=== PATIENT | male | born 1930 | race Caucasian/White ===

== ENCOUNTER 2016-10-22 11:18 | Emergency (ER) | payer MEDICARE, BC ==
[2016-10-22 12:07] VITALS: BP 140/65
--- NOTE | 2016-10-22 12:42 | UC ---
Complaint Male HPI - HPI Summary HPI Summary: Patient woke up in the morning with severe flank pain, has Hx of BPH and has difficulty urinating. denies any pain at this moment, states he feels fine, but has had kidney stones in the past. - History of Current Complaint Chief Complaint: UCGeneralIllness Stated Complaint: LOW BACK PAIN/VOMITING Time Seen by Provider: 10/22/16 12:26 Hx Obtained From: Patient Onset/Duration: Sudden Onset, Lasting Hours Timing: Intermittent Severity Initially: Severe Severity Currently: None Location: Flank Character: Burning Aggravating Factor(s): Voiding Associated Signs And Symptoms: Positive: Back Pain - Allergies/Home Medications Allergies/Adverse Reactions: Allergies Allergy/AdvReac Type Severity Reaction Status Date / Time Atorvastatin [From Lipitor] AdvReac Intermediate See Comment Verified 10/22/16 11:57 Home Medications: Home Medications Gary [place] 10/22/16 [History] PMH/Surg Hx/FS Hx/Imm Hx Previously Healthy: Yes - Surgical History Surgical History: Yes Surgery Procedure, Year, and Place: CARDIAC STENTS,ANKLE SURGERY, ORTHOSCOPY KNEES. PYLONIDAL CYST,APPENCECTOMY, left hand surgery - Family History Known Family History: Positive: Hypertension Family History: unsure of family history - Social History Alcohol Use: Occasionally Substance Use Type: None Smoking Status (MU): Former Smoker When Did the Patient Quit Smoking/Using Tobacco: 50 YRS Review of Systems Constitutional: Negative Skin: Negative Eyes: Negative ENT: Negative Respiratory: Negative Cardiovascular: Negative Gastrointestinal: Negative Genitourinary: Dysuria Motor: Negative Neurovascular: Negative Musculoskeletal: Myalgia Neurological: Negative Psychological: Negative All Other Systems Reviewed And Are Negative: Yes Physical Exam Triage Information Reviewed: Yes Appearance: Well-Appearing, Well-Nourished, Pain Distress Vital Signs: Initial Vital Signs Temp 97.9 F 10/22/16 12:01 Pulse 60 10/22/16 12:01 Resp 20 10/22/16 12:01 BP 140/65 10/22/16 12:01 Pulse Ox 96 10/22/16 12:01 Vital Signs Reviewed: Yes Eye Exam: Normal ENT Exam: Normal Dental Exam: Normal Neck exam: Normal Respiratory Exam: Normal Respiratory: Positive: Chest non-tender, Lungs clear, Normal breath sounds Cardiovascular Exam: Normal Cardiovascular: Positive: RRR, No Murmur, Pulses Normal Abdomen Description: Positive: Nontender, No Organomegaly, Soft, CVA Tenderness (R) - neg, CVA Tenderness (L) - neg Bowel Sounds: Positive: Present Musculoskeletal Exam: Normal Musculoskeletal: Positive: Strength Intact, ROM Intact, No Edema Neurological Exam: Normal Neurological: Positive: Alert, Muscle Tone Normal Psychological Exam: Normal Skin Exam: Normal Complaint Male Course/Dx - Course Course Of Treatment: hx obtained, exam performed ,meds reviewed, ct obtained and renal stones visible, UA attempted but patient not able to give a sample at this time, patient will follow up with his urologist on Monday, advised a trip to ER if pain becomes worse or he cannot urinate - Differential Dx/Diagnosis Differential Diagnosis/HQI/PQRI: Prostatitis, Ureteral Calculi, Urinary Tract Infection Provider Diagnoses: renal calculi. flank pain. BPH Discharge - Discharge Plan Condition: Stable Disposition: HOME Patient Education Materials: Kidney Stones (ED) Additional Instructions: 1. follow up with you urologist on monday morning 2. Increase fluid intake and use the pain medication as needed. 3. If pain becomes sever, please report to ER for further evaluation
--- NOTE | 2016-10-22 13:08 | RAD ---
CLINICAL HISTORY: Right flank pain with vomiting COMPARISON: December 19, 2009 TECHNIQUE: Multiple contiguous axial CT scans were obtained of the abdomen and pelvis, without intravenous contrast enhancement. Coronal and sagittal multiplanar reformations are submitted for review. Oral contrast was not administered. FINDINGS: The study is limited by the lack of intravenous contrast. This limits evaluation of the solid organs and vasculature. LUNG BASES: The lung bases are clear. LIVER: The liver is normal in shape, size, contour, and attenuation. BILE DUCTS: There is no intrahepatic or extrahepatic biliary dilatation. GALLBLADDER: Multiple gallstones are noted. There is no pericholecystic inflammatory change. PANCREAS: The pancreas is normal, without mass or ductal dilatation. SPLEEN: Normal in size and appearance. UPPER GI TRACT: Evaluation of the gastrointestinal tract is limited by incomplete gastric distention. The upper GI tract is unremarkable. SMALL BOWEL AND MESENTERY: The small bowel is normal in contour, course, and caliber. There is no obstruction or dilatation. COLON: The colon is normal in contour, course, caliber. There is no pericolonic inflammatory change. There is a tubular, vermiform, hollow viscus that is blind ending, and originates from the cecum, consistent with a normal appendix. There is no periappendiceal inflammatory change. This is best seen on axial image 117 ADRENALS: Normal bilaterally. KIDNEYS: There is a 0.3 cm calculus of the right UVJ with mild hydroureter. There are punctate nonobstructing calyceal stones bilaterally. BLADDER: As noted above, there is a 0.3 cm right UVJ stone PELVIC ORGANS: The prostate is diffusely enlarged. The seminal vesicles are symmetric. AORTA: There is calcific atherosclerotic disease of the abdominal aorta and its branches, without aneurysmal dilatation IVC: Unremarkable LYMPH NODES: There is no lymphadenopathy by size criteria. ABDOMINAL WALL: There is a small fat-containing ventral hernia just superior to the umbilicus. BONES AND SOFT TISSUES: Degenerative changes are noted of the spine OTHER: None IMPRESSION: 1. BILATERAL NEPHROLITHIASIS INCLUDING A 0.3 CM CALCULUS OF THE RIGHT UVJ. THERE IS MILD RIGHT HYDROURETER. 2. CHOLELITHIASIS. 3. FAT-CONTAINING VENTRAL HERNIA. 4. ENLARGED PROSTATE
[2016-10-22] MEDS ORDERED: Ketorolac INJ* 30 MG/ML 1 ML VIAL IM ONE (13:25)
== END 2016-10-22 14:09 | disposition home or self-care (01) ==
LOC: UCCORT 11:18
DX: N20.0 Calculus of kidney (principal); N20.1 Calculus of ureter; K80.20 Calculus of gallbladder without cholecystitis without obstruction; K43.9 Ventral hernia without obstruction or gangrene; N40.0 Benign prostatic hyperplasia without lower urinary tract symptoms; Z95.5 Presence of coronary angioplasty implant and graft; Z87.891 Personal history of nicotine dependence
CPT/HCPCS: 74176; 96372; 99212; G0463; J1885

== ENCOUNTER 2017-07-20 07:32 | Emergency (ER) | payer MEDICARE, BC ==
[2017-07-20 08:10] VITALS: BP 143/82
[2017-07-20] MEDS ORDERED: Ipratropium 0.5MG/2.5ML NEB* 0.5 MG/2.5 ML NEB.SOLN INH ONE (09:11)
[2017-07-20] MEDS ORDERED: Albuterol 2.5 MG/3 ML NEB.SOL* (0.083%) INH ONE (09:11)
--- NOTE | 2017-07-20 09:16 | RAD ---
HISTORY: Cough, productive COMPARISONS: December 17, 2013 VIEWS: 4: Frontal dual-energy and lateral views of the chest. FINDINGS: CARDIOMEDIASTINAL SILHOUETTE: The cardiomediastinal silhouette is normal. GRACE: The grace are normal. PLEURA: The costophrenic angles are sharp. No pleural abnormalities are noted. LUNG PARENCHYMA: There is hyperinflation with flattening of the diaphragm and expansion of the AP diameter of the chest. ABDOMEN: The upper abdomen is clear. There is no subphrenic gas. BONES AND SOFT TISSUES: Degenerative changes are noted along the spine. OTHER: None. IMPRESSION: HYPERINFLATION, CONSISTENT WITH COPD. NO ACTIVE CARDIOPULMONARY DISEASE.
--- NOTE | 2017-07-20 09:23 | UC ---
Respiratory Complaint HPI - HPI Summary HPI Summary: 86 yo male with productive cough and mild dyspnea x 3-4 days no CP no f/c no n/v/d - History of Current Complaint Chief Complaint: UCRespiratory Stated Complaint: COUGH Time Seen by Provider: 07/20/17 08:38 Hx Obtained From: Patient Onset/Duration: Gradual Onset, Lasting Days Timing: Constant Severity Initially: Mild Severity Currently: Moderate Pain Intensity: 0 Pain Scale Used: 0-10 Numeric Character: Cough: Productive Aggravating Factors: Exertion, Recumbent Position Alleviating Factors: Nothing Associated Signs And Symptoms: Positive: Wheezing Related History: Similar Episode/Dx as: - bronchitis - Allergies/Home Medications Allergies/Adverse Reactions: Allergies Allergy/AdvReac Type Severity Reaction Status Date / Time lipitor Allergy See Comment Uncoded 07/20/17 08:12 Home Medications: Home Medications Jade & Celery Seed 1 tab PO DAILY 07/20/17 [History Confirmed 07/20/17] Cyanocobalamin TAB* [Vitamin B12 TAB*] 1,000 mcg PO DAILY 07/20/17 [History Confirmed 07/20/17] Gluc Gonsales/Chondro Gonsales A/Vit C/Mn [Glucosamine Chondroitin] 1 tab PO DAILY 07/20/17 [History Confirmed 07/20/17] dilTIAZem HCl [Cardizem 120 MG TAB] 1 tab PO BID 07/20/17 [History Confirmed ] PMH/Surg Hx/FS Hx/Imm Hx Previously Healthy: Yes Cardiovascular History: Cardiac Disease, Hypertension Respiratory History: Bronchitis - Surgical History Surgical History: Yes Surgery Procedure, Year, and Place: CARDIAC STENTS,ANKLE SURGERY, ORTHOSCOPY KNEES. PYLONIDAL CYST,APPENCECTOMY, left hand surgery - Family History Known Family History: Positive: Hypertension Family History: unsure of family history - Social History Alcohol Use: Occasionally Substance Use Type: None Smoking Status (MU): Former Smoker When Did the Patient Quit Smoking/Using Tobacco: 50- 60 YRS Review of Systems Constitutional: Negative Skin: Negative Eyes: Negative ENT: Negative Respiratory: Cough Cardiovascular: Negative Gastrointestinal: Negative Genitourinary: Negative Motor: Negative Neurovascular: Negative Musculoskeletal: Negative Neurological: Negative Psychological: Negative Is Patient Immunocompromised?: No All Other Systems Reviewed And Are Negative: Yes Physical Exam Triage Information Reviewed: Yes Appearance: Well-Appearing, No Pain Distress, Well-Nourished Vital Signs: Initial Vital Signs Temp 98.5 F 07/20/17 08:03 Pulse 71 07/20/17 08:03 Resp 22 07/20/17 08:03 BP 143/82 07/20/17 08:03 Pulse Ox 96 07/20/17 08:03 Vital Signs Reviewed: Yes Eyes: Positive: Conjunctiva Clear ENT: Positive: Hearing grossly normal, Uvula midline. Negative: Nasal congestion, Nasal drainage, Trismus, Muffled voice, Hoarse voice Neck: Positive: Supple, Nontender, No Lymphadenopathy Respiratory: Positive: No respiratory distress, No accessory muscle use, Wheezing Cardiovascular: Positive: RRR, No Murmur Musculoskeletal: Positive: ROM Intact, No Edema Neurological: Positive: Alert Psychological Exam: Normal UC Diagnostic Evaluation - Laboratory O2 Sat by Pulse Oximetry: 96 - normal;/not hypoxic - Radiology Xray Interpretation: No Acute Changes - stigmata of COPD Radiology Interpretation Completed By: Radiologist Re-Evaluation - Re-Evaluation First Eval Re-Evaluation Time: 09:49 Change: Improved - lungs clear Respiratory Course/Dx - Differential Dx/Diagnosis Provider Diagnoses: acute bronchitis with bronchospasm Discharge - Sign-Out/Discharge Documenting (check all that apply): Discharge/Admit/Transfer - Discharge Plan Condition: Stable Disposition: HOME Prescriptions: Amoxicillin PO (*) [Amoxicillin 875 MG (*)] 875 mg PO BID #14 tab predniSONE [Deltasone] 20 mg PO DAILY #5 tab Patient Education Materials: How to Use a Metered-Dose Inhaler (ED), Acute Bronchitis (ED) Referrals: Jarrod Bernard MD [Primary Care Provider] - 4 Days Additional Instructions: recheck for new or worsening symptoms use inhaler as directed
[2017-07-20] MEDS ORDERED: Albuterol HFA INHALER* 8 gm MDI INH ONE (09:50)
== END 2017-07-20 10:08 | disposition home or self-care (01) ==
LOC: UCCORT 07:32
DX: J20.9 Acute bronchitis, unspecified (principal); I10 Essential (primary) hypertension; Z79.899 Other long term (current) drug therapy; Z87.891 Personal history of nicotine dependence; Z88.8 Allergy status to other drugs, medicaments and biological substances
CPT/HCPCS: 71046; 99213; A9270-GY; G0463

== ENCOUNTER 2018-11-17 11:20 | Inpatient (IN) | payer MEDICARE, BC ==
--- NOTE | 2018-11-17 11:33 | ED ---
HPI Chest Pain - HPI Summary HPI Summary: 87 year old M presenting to [facility] complains of intermittent episodes of mild chest pain rated 5/10 in severity, described as pressure and tight, lasting 4-5 minutes each episode, with associated bilateral hand numbness, shortness of breath, and dizziness since 1 week ago while patient is not doing anything. Patient states that he has been having 2-3 episodes each day for the last week. Patient states that this morning, his chest pain became more frequent and persistent. Patient denies nausea and vomiting. Patient states he has never had these symptoms before. Symptoms aggravated by nothing. Symptoms alleviated by nothing. Patient states he has cardiac stents. Patient states he has hx hypertension and hypercholesterolemia. Patient states he has no hx MS or diabetes. Patient states he saw his primary care provider 2 weeks ago for hypertension, was placed on lisinopril, after which he developed hypotension so he stopped taking it. Patient states he had a LEOLA done yesterday by Dr. Rosas, which revealed a "valve issue." - History of Current Complaint Hx Obtained From: Patient Onset/Duration: Started Weeks Ago - 1, Still Present Timing: Intermittent, Lasting Minutes - 4-5 Current Severity: Mild Pain Intensity: 5 Pain Scale Used: 0-10 Numeric Character: Pressure/Squeezing, Tightness Aggravating Factor(s): Nothing Alleviating Factor(s): Nothing Associated Signs and Symptoms: Positive: Negative - nausea, vomiting, Other: - bilateral hand numbness, shortness of breath, and dizziness - Allergy/Home Medications Allergies/Adverse Reactions: Allergies Allergy/AdvReac Type Severity Reaction Status Date / Time lipitor AdvReac Unknown See Comment Uncoded 11/17/18 11:30 PMH/Surg Hx/FS Hx/Imm Hx Endocrine/Hematology History: Denies: Hx Diabetes Cardiovascular History: Reports: Hx Angina, Hx Hypercholesterolemia, Hx Hypertension Denies: Hx Myocardial Infarction Respiratory History: Denies: Hx Asthma, Hx Chronic Obstructive Pulmonary Disease (COPD) History: Denies: Hx Chronic Renal Failure Sensory History: Reports: Hx Contacts or Glasses Denies: Hx Hearing Aid Opthamlomology History: Reports: Hx Contacts or Glasses - Surgical History Surgery Procedure, Year, and Place: CARDIAC STENTS,ANKLE SURGERY, ORTHOSCOPY KNEES. PYLONIDAL CYST,APPENCECTOMY, left hand surgery - Family History Known Family History: Positive: Hypertension - Social History Alcohol Use: Occasionally Alcohol Amount: once per week Hx Substance Use: No Substance Use Type: Reports: None Hx Tobacco Use: Yes Smoking Status (MU): Former Smoker Review of Systems Positive: Chest Pain Positive: Shortness Of Breath Negative: Vomiting, Nausea Neurological: Other - Dizziness Positive: Numbness - bilateral hands All Other Systems Reviewed And Are Negative: Yes Physical Exam - Summary Physical Exam Summary: VITAL SIGNS: Reviewed. GENERAL: Patient is a well-developed and nourished MALE who is lying comfortable in the stretcher. Patient is not in any acute respiratory distress. HEAD AND FACE: No signs of trauma. No ecchymosis, hematomas or skull depressions. No sinus tenderness. EYES: PERRLA, EOMI x 2, No injected conjunctiva, no nystagmus. EARS: Hearing grossly intact. Ear canals and tympanic membranes are within normal limits. MOUTH: Oropharynx within normal limits. NECK: Supple, trachea is midline, no adenopathy, no JVD, no carotid bruit, no c- spine tenderness, neck with full ROM. CHEST: Symmetric, no tenderness at palpation. LUNGS: Clear to auscultation bilaterally. No wheezing or crackles. CVS: Regular rate and rhythm, S1 and S2 present, no murmurs or gallops appreciated. ABDOMEN: Soft, non-tender. No signs of distention. No rebound, no guarding, and no masses palpated. Bowel sounds are normal. EXTREMITIES: FROM in all major joints, no edema, no cyanosis or clubbing. NEURO: Alert and oriented x 3. No acute neurological deficits. Speech is normal and follows commands. SKIN: Dry and warm. Triage Information Reviewed: Yes Vital Signs Reviewed: Yes Diagnostics - Laboratory Result Diagrams: 11/17/18 11:42 11/17/18 11:42 Lab Statement: Any lab studies that have been ordered have been reviewed, and results considered in the medical decision making process. - Radiology Chest x-ray Radiology Interpretation Completed By: Radiologist Summary of Radiographic Findings: 1. NO DEFINITE ACUTE CARDIAC PULMONARY PROCESS BY RADIOGRAPH. 2. SUBSEGMENTAL ATELECTASIS AT THE LEFT COSTOPHRENIC ANGLE IS LIKELY. ED physician has reviewed this report. - EKG 1124 Cardiac Rate: NL - 64 BPM EKG Rhythm: Sinus Rhythm EKG Comparison: No Significant Change - 11/16/18 Summary of EKG Findings: Sinus rhythm at [address] elevation. Q wave in 3 and aVF. This EKG is similar to 11/16/18 Re-Evaluation - Re-Evaluation First Eval Re-Evaluation Time: 12:19 Change: Unchanged Comment: aware of troponin 0.32 Chest Pain Course/Dx - Course Assessment/Plan: Blood work without any significant abnormality except for an INR of 1.13, glucose of 130, troponin of 0.32. EKG shows a normal sinus rhythm without any ST elevations. Patient has a Q waves in leads 3 and aVF. Chest x- ray impression: No definite acute cardiopulmonary process. Subsegmental atelectasis at the left costophrenic angle is likely. Since the patient has a significant elevation of troponin, the patient is started on aspirin, Lopressor , and nitroglycerin. Since the patient takes Viagra, he was given heparin. I discussed my physical exam and findings with who accepted the patient for admission. Patient is hemodynamically stable. - Diagnoses Provider Diagnoses: NSTEMI (non-ST elevated myocardial infarction) - Provider Notifications Discussed Care Of Patient With: Kathleen Morin Time Discussed With Above Provider: 12:35 Instructed by Provider To: Other - Dr. Morin, hospitalist, agrees to admit patient. Discharge ED - Sign-Out/Discharge Documenting (check all that apply): Patient Departure - Admit to hospitalist Patient Received Moderate/Deep Sedation with Procedure: No - Discharge Plan Condition: Stable Disposition: ADMITTED TO [facility] - Billing Disposition and Condition Condition: STABLE Disposition: Admitted to [facility] - Attestation Statements Document Initiated by Stephaniee: Yes Documenting Scribe: Ludmila Nash Provider For Whom Julius is Documenting (Include Credential): Jarrod Cruz MD Scribe Attestation: I, Ludmila Nash, scribed for Jarrod Cruz MD on 11/17/18 at 1842. Scribe Documentation Reviewed: Yes Provider Attestation: The documentation as recorded by the Ludmila gray accurately reflects the service I personally performed and the decisions made by me, Jarrod Cruz MD Status of Scribe Document: Viewed
--- OUTSIDE RECORDS SUMMARY | 2018-11-17 11:34 | XMS REPORT | Continuity of Care Document ---
:1930 External Reference #:[id number] Author Name Aniyah Miranda N.P. (transmitted by agent of provider Isis Marcano) Address [facility] 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 Onset: 02/09/2011 Essential hypertension Bharath Rosas M.D. Onset: 10/27/2015 Difficulty breathing Bharath Rosas M.D. Onset: 10/29/2013 Obesity Bharath Rosas M.D. Onset: 09/17/2012 Aortic valve disorder Bharath Rosas M.D. Onset: 09/17/2012 Benign localized hyperplasia of prostate Jarrod Bernard M.D. Onset: 2011 Pure hypercholesterolemia Jarrod Bernard M.D. Onset: 10/12/2011 Benign essential hypertension Jarrod Bernard M.D. Onset: 10/12/2011 Social History Type Date Description Comments Sex Unknown Tobacco Use Start: Unknown End: Former Cigarette Smoker 2 for 20 years Unknown Packs Daily Tobacco Use Start: Unknown End: current.occasional.[occas Unknown ional] Smokeless Tobacco current.occasional.[occas ional] ETOH Use Rarely consumes alcohol Tobacco Use Start: Unknown End: Patient is a former Quit 1960s Unknown smoker Recreational Drug Use Denies Drug Use Smoking Status Reviewed: 11/12/18 Patient is a former Quit 1960s smoker Exercise Type/Frequency Does not exercise currently Allergies, Adverse Reactions, Alerts Active Allergies Reaction Severity Comments Date Lipitor insomnia on 20 mg qd, okay on 10 mg 09/06/2002 Medications Active Medications SIG Qnty Indications Ordering Provider Date Xopenex HFA inhale 2 puffs 15units J20.9 Jarrod Bernard, 11/13/2017 45mcg/Act four times a day M.DCarlos Aerosol as needed Cardizem CD take 1 tab in 90caps Bharath Olguin 12/12/2013 120mg Caps the morning Pedro Rosas ER 24HR Inspra 1 tabs by mouth 180tabs Aniyah CardCarlos Miranda, 10/29/2013 25mg Tablets bid N.P. Zocor 1/2 by mouth at 45tabs Bharath Olguin 12/18/2009 10mg Tablets bedtime Pedro Rosas Indomethacin 1 three times a 20caps Jarrod Bernard, 07/02/2008 25mg day as needed M.DCarlos Capsules gout Aspirin 1 PO qd Bharath Rosas, 11/20/2007 81mg Tablets Proscar One qd 30units Bharath Olguin 08/08/2002 5mg Pedro Rosas Glucosamine 1 Tab qd 30units Bharath Olguin 08/08/2002 Chondroitin Pedro Rosas PT Unsure Dose Nitrostat one sl q5min up 25tabs Bharath Carlos 0.3mg Tablets to 3 doses as Pedro Rosas Sub needed replace every 12 months History Medications Lisinopril 1 by mouth 30tabs I10 Bharath Olguin 10/23/2018 - 2.5mg every other day Pedro Rosas 11/11/2018 Tablets Medications Administered in Office Medication SIG Qnty Indications Ordering Provider Date Inj, Regadenoson, 0.1 MG Neil Brewer, DO FAC 12/22/2016 Injection Technetium TC 99M Neil Brewer, DO FAC 12/22/2016 Tetrofosmin, Per Unit Dose Up To 40 Millicuries Injection Technetium TC 99M KAYDEN Salas 12/22/2016 Tetrofosmin, Per Unit Dose Up To 40 Millicuries Injection Immunizations CPT Code Status Date Vaccine Reaction Lot # [id number] Given 12/13/2017 Fluzone High Dose Pt.tolerated well. [id number] 28818 Given 12/27/2016 Influenza Virus Vaccine, Quadrivalent, Split, Preservative Free 87381 Given 12/23/2015 Tdap - Tetanus/Diptheria/Acellular Pertussis Q2038 Given 12/18/2014 Fluzone Vaccine 22324 Given 12/17/2013 Flu Vaccine Split Virus [id number] Preservative Free For Indiv 3Yr Older Q2035 Given 12/17/2012 Afluria Vaccine 38190 Given 12/07/2009 Influenza Virus 3Yrs & Over [id number] 46548 Given 11/20/2007 Influenza Virus 3Yrs & Over 46057 Given 11/20/2007 Influenza Virus 3Yrs & Over 54829 Given 12/19/2006 Influenza Virus 3Yrs & Over 57982 Given 12/19/2006 Influenza Virus 3Yrs & Over 65841 Given 11/13/2006 Tdap - Tetanus/Diptheria/Acellular Pertussis 34953 Given 11/13/2006 Tdap - [id number] Tetanus/Diptheria/Acellular Pertussis 55437 Given 12/24/1997 Pneumovax (History By Patient) Vital Signs Date Vital Result Comment 11/12/2018 3:52pm Height 69.5 inches 5'9.50" Weight 217.25 lb Heart Rate 72 /min BP Systolic Sitting 152 mmHg LA< reg BP Diastolic Sitting 82 mmHg LA< reg BMI (Body Mass Index) 31.6 kg/m2 Ejection Fraction 60%-65% 10/11/18 echo 10/23/2018 10:28am Height 69.5 inches 5'9.50" Weight 230.12 lb with shoes Heart Rate 60 /min BP Systolic Sitting 156 mmHg ule reg cuff BP Diastolic Sitting 80 mmHg ule reg cuff O2 % BldC Oximetry 93 % BMI (Body Mass Index) 33.5 kg/m2 Ejection Fraction 60-65% 10/11/18 Echo Results Test Date Facility Test Result H/L Range Note Lipid Panel - 10/04/2018 [facility] Creatine 72 U/L Normal 10- [address] Kinase(CK) [place] [address] [phone] Comp Metabolic 10/04/2018 [facility] Sodium 140 mmol/L Normal 135-145 Panel [address] [place] [address] [phone] Potassium 4.6 mmol/L Normal 3.5-5.0 Chloride 106 mmol/L Normal 101-111 Co2 Carbon Dioxide 27 mmol/L Normal 22-32 Anion Gap 7 mmol/L Normal 2-11 Glucose 107 mg/dL High 70-100 Blood Urea Nitrogen 25 mg/dL High 6-24 Creatinine 1.03 mg/dL Normal 0.67-1.17 BUN/Creatinine Ratio 24.3 High 8-20 Calcium 8.9 mg/dL Normal 8.6-10.3 Total Protein 6.4 g/dL Normal 6.4-8.9 Albumin 4.2 g/dL Normal 3.2-5.2 Globulin 2.2 g/dL Normal 2-4 Albumin/Globulin Ratio 1.9 Normal 1-3 Total Bilirubin 0.80 mg/dL Normal 0.2-1.0 Alkaline Phosphatase 81 U/L Normal 34-104 Alt 27 U/L Normal 7-52 Ast 21 U/L Normal 13-39 Egfr Non- 68.6 >60 Egfr 83.0 >60 1 Lipid Profile 10/04/2018 [facility] Triglycerides 95 mg/dL 2 (Trig/Chol/HDL) [address] [place] [address] [phone] Cholesterol 145 mg/dL 3 HDL Cholesterol 46.3 mg/dL 4 LDL Cholesterol 80 mg/dL 5 1 Because ethnic data is not always readily available, this report includes an eGFR for both -Americans and non- Americans. The National Kidney Disease Education Program (NKDEP) does not endorse the use of the MDRD equation for patients that are not between the ages of 18 and 70, are , have extremes of body size, muscle mass, or nutritional status, or are non- or non-. According to the National Kidney Foundation, irrespective of diagnosis, the stage of the disease is based on the level of kidney function: Stage Description GFR(mL/min/1.73 m(2)) 1 Kidney damage with normal or decreased GFR 90 2 Kidney damage with mild decrease in GFR 60-89 3 Moderate decrease in GFR 30-59 4 Severe decrease in GFR 15-29 5 Kidney failure <15 (or dialysis) 2 Desirable: <150 Borderline High: 150-199 High: 200-499 Very High: >500 3 Desirable: <200 Borderline High: 200-239 High: >239 4 Low: <40 Desirable: 40-60 High: >60 5 Desirable: <100 Near Optimal: 100-129 Borderline High: 130-159 High: 160-189 Very High: >189 Procedures Date Code Description Status 11/12/2018 67828 EKG Tracing & Interpretation Completed 10/23/2018 00692 EKG Tracing & Interpretation Completed 10/11/2018 45703 ECHO Transthoracic, Real-Time 2D With Doppler And Color Completed Flow 10/11/2018 13728 ECHO Transthoracic, Real-Time 2D With Doppler And Color Completed Flow 10/10/2018 49045 EKG Tracing & Interpretation Completed 08/04/2008 18726888 Colonoscopy Completed Medical Devices Description No Information Available Encounters Type Date Location Provider Dx Diagnosis Office Visit 11/12/2018 [facility] Aniyah Miranda, I35.0 Nonrheumatic aortic 3:30p N.P. (valve) stenosis I10 Essential (primary) hypertension E78.00 Pure hypercholesterolemia, unspecified I25.10 Athscl heart disease of [place] coronary artery w/o ang pctrs R06.00 Dyspnea, unspecified Office Visit 10/23/2018 10:40a [facility] Bharath Olguin I35.0 Nonrheumatic Pedro Rosas aortic (valve) stenosis I10 Essential (primary) hypertension E78.00 Pure hypercholesterolemia, unspecified I25.10 Athscl heart disease of [place] coronary artery w/o ang pctrs R06.00 Dyspnea, unspecified Office Visit 10/10/2018 8:30a [facility] Aniyah Dozier I10 Essential ( primary) Foster, N.P. hypertension E78.00 Pure hypercholesterolemia, unspecified I25.10 Athscl heart disease of [place] coronary artery w/o ang pctrs I35.0 Nonrheumatic aortic (valve) stenosis Assessments Date Code Description Provider 11/12/2018 I35.0 Nonrheumatic aortic (valve) stenosis Aniyah Card. Ruben, N.P. 11/12/2018 I10 Essential (primary) hypertension Aniyah SCarlos Miranda, N.P. 11/12/2018 E78.00 Pure hypercholesterolemia, unspecified Aniyah Miranda, N.P. 11/12/2018 I25.10 Atherosclerotic heart disease of [place] Aniyah Miranda, N.P. coronary artery without angina pectoris 11/12/2018 R06.00 Dyspnea Aniyah Miranda, N.P. 10/23/2018 I35.0 Nonrheumatic aortic (valve) stenosis Bharath Rosas M.D. 10/23/2018 I10 Essential (primary) hypertension Bharath Rosas M.D. 10/23/2018 E78.00 Pure hypercholesterolemia, unspecified Bharath Rosas M.D. 10/23/2018 I25.10 Atherosclerotic heart disease of [place] Bharath Rosas M.D. coronary artery without angina pectoris 10/23/2018 R06.00 Dyspnea Bharath Rosas M.D. 10/11/2018 I35.0 Nonrheumatic aortic (valve) stenosis Bharath Rosas M.D. 10/11/2018 I35.0 Nonrheumatic aortic (valve) stenosis [place] [facility] Schedule 10/10/2018 R94.31 Abnormal electrocardiogram [ECG] [EKG] Bharath Rosas M.D. 10/10/2018 I10 Essential (primary) hypertension Aniyah Miranda, N.P. 10/10/2018 E78.00 Pure hypercholesterolemia, unspecified Aniyah Miranda, N.P. 10/10/2018 I25.10 Atherosclerotic heart disease of [place] Aniyah Miranda, N.P. coronary artery without angina pectoris 10/10/2018 I35.0 Nonrheumatic aortic (valve) stenosis Aniyah Miranda, N.P. Plan of Treatment Future Appointment(s):11/23/2018 8:30 am - Bharath Rosas M.D. at [facility]11/16/2018 8:00 am - Bharath Rosas M.D. at [facility] 9:20 am - Jarrod Bernard M.D. at [facility] AT [id number] - Aniyah Miranda, N.P.I35.0 Nonrheumatic aortic (valve) [id number] Essential (primary) hypertensionFollow up:05/2019 [facility] please give stress test arrival time info to pt at check out and location.Recommendations:Continue to check BPs call is top number < 100. or dizzy/lightheaded.E78.00 Pure hypercholesterolemia, ztjrzplkmxxN94.10 Atherosclerotic heart disease of [place] coronary artery without angina ualzwmuhT26.00 Dyspnea Functional Status Description No Information Available Mental Status Description No Information Available Referrals Description No Information Available
--- OUTSIDE RECORDS SUMMARY | 2018-11-17 11:34 | XMS REPORT | Continuity of Care Document ---
:1930 External Reference #:[id number] Author Name Juanito Heath M.D. 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 Onset: 02/09/2011 Essential hypertension Bharath oRsas M.D. Onset: 10/27/2015 Difficulty breathing Bharath Rosas [...] Inspra 1 tabs by mouth 180tabs Aniyah Jacoby Miranda, 10/29/2013 25mg Tablets bid N.P. Zocor [...] Provider Date Inj, Regadenoson, 0.1 MG Neil Brewer DO [facility] 12/22/2016 Injection Technetium TC 99M Neil Brewer, DO [facility] 12/22/2016 Tetrofosmin, Per Unit Dose Up To 40 Millicuries Injection Technetium TC 99M KAYDEN Salas 12/22/2016 Tetrofosmin, Per Unit Dose Up To 40 Millicuries Injection Immunizations CPT Code Status Date Vaccine Reaction Lot # [id number] Given 12/13/2017 Fluzone High Dose Pt.tolerated well. [id number] 25976 Given 12/27/2016 Influenza Virus Vaccine, Quadrivalent, Split, Preservative Free 99076 Given 12/23/2015 Tdap - Tetanus/Diptheria/Acellular Pertussis Q2038 Given 12/18/2014 Fluzone Vaccine 01473 Given 12/17/2013 Flu Vaccine Split Virus [id number] Preservative Free For Indiv 3Yr Older Q2035 Given 12/17/2012 Afluria Vaccine 65145 Given 12/07/2009 Influenza Virus 3Yrs & Over [id number] 17292 Given 11/20/2007 Influenza Virus 3Yrs & Over 11214 Given 11/20/2007 Influenza Virus 3Yrs & Over 14374 Given 12/19/2006 Influenza Virus 3Yrs & Over 94637 Given 12/19/2006 Influenza Virus 3Yrs & Over 68823 Given 11/13/2006 Tdap - Tetanus/Diptheria/Acellular Pertussis 09925 Given 11/13/2006 Tdap - [id number] Tetanus/Diptheria/Acellular Pertussis 73240 Given 12/24/1997 Pneumovax (History By Patient) Vital [...] H/L Range Note Lipid Panel - 10/04/2018 [facility] Creatine 72 U/L Normal 10- [address] Kinase(CK) [place] [address] [phone] Comp Metabolic 10/04/2018 [facility] Sodium 140 mmol/L Normal 135-145 Panel [address] [place] [address] [phone] Potassium 4.6 mmol/L Normal 3.5-5.0 Chloride 106 [...] Egfr 83.0 >60 1 Lipid Profile 10/04/2018 [facility] Triglycerides 95 mg/dL 2 (Trig/Chol/HDL) [address] [place] [address] [phone] Cholesterol 145 mg/dL 3 HDL Cholesterol 46.3 [...] >189 Procedures Date Code Description Status 11/12/2018 23568 EKG Tracing & Interpretation Completed 10/23/2018 19548 EKG Tracing & Interpretation Completed 10/11/2018 02353 ECHO Transthoracic, Real-Time 2D With Doppler And Color Completed Flow 10/11/2018 04524 ECHO Transthoracic, Real-Time 2D With Doppler And Color Completed Flow 10/10/2018 71680 EKG Tracing & Interpretation Completed 08/04/2008 13185030 Colonoscopy Completed Medical Devices Description No Information Available Encounters Type Date Location Provider Dx Diagnosis Office Visit 11/12/2018 [facility] Aniyah Miranda, I35.0 Nonrheumatic aortic 3:30p N.P. (valve) stenosis I10 Essential (primary) hypertension E78.00 Pure hypercholesterolemia, unspecified I25.10 Athscl heart disease of [place] coronary artery w/o ang pctrs R06.00 Dyspnea, unspecified Office Visit 10/23/2018 10:40a [facility] Bharath Olguin I35.0 Nonrheumatic Pedro Rosas aortic (valve) stenosis I10 Essential (primary) hypertension E78.00 Pure hypercholesterolemia, unspecified I25.10 Athscl heart disease of [place] coronary artery w/o ang pctrs R06.00 Dyspnea, unspecified Office Visit 10/10/2018 8:30a [facility] Aniyah Dozier I10 Essential ( primary) Foster, N.P. hypertension E78.00 Pure hypercholesterolemia, unspecified I25.10 Athscl heart disease of [place] coronary artery w/o ang pctrs I35.0 Nonrheumatic aortic (valve) stenosis Assessments Date Code Description Provider 11/16/2018 I35.0 Nonrheumatic aortic (valve) stenosis Bharath Rosas M.D. 11/12/2018 I35.0 Nonrheumatic aortic (valve) stenosis Aniyah Miranda, N.P. 11/12/2018 I10 Essential (primary) hypertension Aniyah Miranda, N.P. 11/12/2018 E78.00 Pure hypercholesterolemia, unspecified Aniyah S. Foster, N.P. 11/12/2018 I25.10 Atherosclerotic heart disease of [place] Aniyah S. Ruben, N.P. coronary artery without angina pectoris 11/12/2018 R06.00 Dyspnea Aniyah S. Ruben, N.P. 10/23/2018 I35.0 Nonrheumatic aortic (valve) stenosis Bharath Rosas M.D. 10/23/2018 I10 Essential (primary) hypertension Bharath Rosas M.D. 10/23/2018 E78.00 Pure hypercholesterolemia, unspecified Bharath Rosas M.D. 10/23/2018 I25.10 Atherosclerotic heart disease of [place] Bharath Rosas M.D. coronary artery without angina pectoris 10/23/2018 R06.00 Dyspnea Bharath Rosas M.D. 10/11/2018 I35.0 Nonrheumatic aortic (valve) stenosis Bharath Rosas M.D. 10/11/2018 I35.0 Nonrheumatic aortic (valve) stenosis [facility] Schedule 10/10/2018 R94.31 Abnormal electrocardiogram [ECG] [EKG] Bharath Rosas M.D. 10/10/2018 I10 Essential (primary) hypertension Aniyah S. Ruben, N.P. 10/10/2018 E78.00 Pure hypercholesterolemia, unspecified Aniyah S. Ruben, N.P. 10/10/2018 I25.10 Atherosclerotic heart disease of [place] Aniyah Card. Ruben, N.P. coronary artery without angina pectoris 10/10/2018 I35.0 Nonrheumatic aortic (valve) stenosis Aniyah S. Ruben, N.P. Plan of Treatment Future Appointment(s):11/23/2018 8:30 am - Bharath Rosas M.D. at [facility]12/14/2018 9:20 am - Jarrod Bernard M.D. at [facility]11/12/2018 - Aniyah Miranda, N.P.I35.0 Nonrheumatic aortic (valve) [id number] Essential (primary) hypertensionFollow up:05/2019 [facility] please give stress test arrival time info to pt at check out and location.Recommendations: Continue to check BPs call is top number < 100. or dizzy/lightheaded.E78.00 Pure hypercholesterolemia, manaxipmqaqY48.10 Atherosclerotic heart disease of [place] coronary artery without angina okjmxcwmD97.00 Dyspnea Functional Status Description No Information Available Mental Status Description No Information Available Referrals Description No Information Available
--- OUTSIDE RECORDS SUMMARY | 2018-11-17 11:34 | XMS REPORT | Continuity of Care Document ---
:1930 External Reference #:[id number] Author Name Aniyah Miranda N.P. (transmitted by agent of provider Isis Marcano) Address [facility] 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 Medicine Problems Active Problems Provider Date Coronary [...] Unknown Packs Daily Tobacco Use Start: Unknown Currently Smokes an Occasional Cigar Tobacco Use Start: Unknown End: current.occasional.[occas Unknown ional] Smokeless Tobacco current.occasional.[occas ional] ETOH Use Has consumed alcohol in the past ETOH Use Rarely consumes alcohol Tobacco Use Start: Unknown End: Patient is a former Quit 1960s Unknown smoker Recreational Drug Use Denies Drug Use Smoking Status Reviewed: 10/10/18 Patient is a former Quit 1960s smoker [...] Cardizem CD take 1 tab in 90caps Hbarath Carlos 12/12/2013 120mg Caps the morning Pedro Rosas ER 24HR Inspra 2 [facility] 25mg Tablets day Pedro Rosas Zocor 1/2 by mouth at [facility] 12/18/2009 10mg Tablets bedtime Pedro Rosas Indomethacin 1 three times a 20caps Jarrod Bernard, 07/02/2008 25mg day as needed MCarlosDCarlos Capsules gout Aspirin 1 PO qd Bharath Rosas, 11/20/2007 81mg Tablets MD Jan Mcclure 1 po bid Bharath Carlos 07/13/2005 Tablets Pedro Rosas Proscar One qd 30units Bhaarth Carlos 08/08/2002 5mg Pedro Rosas Glucosamine 1 Tab qd 30units Bharath Carlos 08/08/2002 Chondroitin Pedro Rosas PT Unsure Dose Nitrostat one sl q5min up 25tabs [facility] 0.3[facility] Tablets to 3 doses as Pedro Rosas Sub needed replace every 12 months Medications Administered in Office Medication SIG Qnty Indications Ordering Provider Date Inj, Regadenoson, 0.1 MG Neil Brewer, DO FAC 12/22/2016 Injection Technetium TC 99M Neil Brewer, DO FAC 12/22/2016 Tetrofosmin, Per Unit Dose Up To 40 Millicuries Injection Technetium TC 99M KAYDEN Salas 12/22/2016 Tetrofosmin, Per Unit Dose Up To 40 Millicuries Injection Immunizations CPT Code Status Date Vaccine Reaction Lot # [id number] Given 12/13/2017 Fluzone High Dose Pt.tolerated well. [id number] 02349 Given 12/27/2016 Influenza Virus Vaccine, Quadrivalent, Split, Preservative Free 06662 Given 12/23/2015 Tdap - Tetanus/Diptheria/Acellular Pertussis Q2038 Given 12/18/2014 Fluzone Vaccine 71800 Given 12/17/2013 Flu Vaccine Split Virus [id number] Preservative Free For Indiv 3Yr Older Q2035 Given 12/17/2012 Afluria Vaccine 41613 Given 12/07/2009 Influenza Virus 3Yrs & Over [id number] 20883 Given 11/20/2007 Influenza Virus 3Yrs & Over 90104 Given 11/20/2007 Influenza Virus 3Yrs & Over 24232 Given 12/19/2006 Influenza Virus 3Yrs & Over 51542 Given 12/19/2006 Influenza Virus 3Yrs & Over 94124 Given 11/13/2006 Tdap - Tetanus/Diptheria/Acellular Pertussis 46433 Given 11/13/2006 Tdap - [id number] Tetanus/Diptheria/Acellular Pertussis 14757 Given 12/24/1997 Pneumovax (History By Patient) Vital Signs Date Vital Result Comment 10/10/2018 8:27am Height 69.5 inches 5'9.50" Weight 228.00 lb Heart Rate 72 /min left radial BP Systolic Sitting 172 mmHg ule reg retake 156/94 BP Diastolic Sitting 96 mmHg ule reg retake 156/94 BP Systolic Standing 146 mmHg ule reg cuff BP Diastolic Standing 84 mmHg ule reg cuff BP Systolic Lying Down 148 mmHg ule reg cuff BP Diastolic Lying Down 88 mmHg ule reg cuff BMI (Body Mass Index) 33.2 kg/m2 Ejection Fraction 60-65% Echo 09/04/17 12/13/2017 1:31pm Height 69.5 inches 5'9.50" Weight 227.00 lb Heart Rate 85 /min BP Systolic Sitting 138 mmHg BP Diastolic Sitting 90 mmHg Body Temperature 98.7 F O2 % BldC Oximetry 95 % BMI (Body Mass Index) 33.0 kg/m2 Results Test Date Facility Test Result H/L Range Note Lipid Panel - 10/04/2018 [facility] Creatine 72 U/L Normal 10- [address] Kinase(CK) [place] [address] [phone] Comp Metabolic 10/04/2018 [facility] Sodium 140 mmol/L Normal 135-145 Panel [address] [place] [address] [phone] Potassium 4.6 mmol/L Normal 3.5-5.0 Chloride 106 [...] Egfr 83.0 >60 1 Lipid Profile 10/04/2018 [facility] Triglycerides 95 mg/dL 2 (Trig/Chol/HDL) [address] [place] [address] [phone] Cholesterol 145 mg/dL 3 HDL Cholesterol 46.3 [...] High: >189 Procedures Date Code Description Status 10/10/2018 58142 EKG Tracing & Interpretation Completed 08/04/2008 [id number] Colonoscopy Completed Medical Devices Description No Information Available Encounters Description No Information Available Assessments Date Code Description Provider 10/10/2018 I10 Essential (primary) hypertension Aniyah Miranda, N.P. 10/10/2018 E78.00 Pure hypercholesterolemia, unspecified Aniyah Miranda, N.P. 10/10/2018 I25.10 Atherosclerotic heart disease of [place] Aniyah Miranda N.P. coronary artery without angina pectoris 10/10/2018 I35.0 Nonrheumatic aortic (valve) stenosis Aniyah Miranda, N.P. Plan of Treatment Future Appointment(s):10/11/2018 11:00 am - [place] [facility] 10:40 am - Bharath Rosas M.D. at [facility] 9:20 am - Jarrod Bernard M.D. at [facility] AT [id number] - Aniyah Miranda, N.P.I10 Essential (primary) hypertensionRecommendations: BP looks good check BP 1-2x daily at least 1-2hrs after medications.E78.00 Pure hypercholesterolemia, unspecifiedRecommendations:lipids close to goalI25.10 Atherosclerotic heart disease of [place] coronary artery without angina tcmfpkvyK11.0 Nonrheumatic aortic (valve) stenosisNew Orders:Echocardiogram, Scheduled: 10/11/18Follow up:[facility] 10/23 (echo prior) Functional Status Description No Information Available Mental Status Description No Information Available Referrals Description No Information Available
--- OUTSIDE RECORDS SUMMARY | 2018-11-17 11:34 | XMS REPORT | Continuity of Care Document ---
:1930 External Reference #:[id number] Author Name Bharath Rosas M.D. 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 Medicine Problems Active Problems Provider Date Coronary [...] Use Denies Drug Use Smoking Status Reviewed: 10/23/18 Patient is a former Quit 1960s smoker Exercise Type/Frequency Does not exercise currently Allergies, Adverse Reactions, Alerts Active Allergies Reaction Severity Comments Date Lipitor insomnia on 20 mg qd, okay on 10 mg 09/06/2002 Medications Active Medications SIG Qnty Indications Ordering Provider Date Lisinopril 1 by mouth every 30tabs I[facility]2018 2.5mg day Pedro Rosas Tablets Xopenex HFA inhale 2 puffs 15units J20.9 Jarrod Bernard, 11/13/2017 45mcg/Act four times a day M.DCarlos Aerosol as needed Cardizem CD take 1 tab in 90caps [facility] 12/12/2013 120mg Caps the morning Pedro Rosas ER 24HR Inspra 2 tabs by mouth 180tabs Aniyah Miranda, 10/29/2013 25mg Tablets every day N.P. Zocor 1/2 by mouth at 45tabs [facility] 12/18/2009 10mg Tablets bedtime Pedro Rosas Indomethacin 1 three times a 20caps Jarrod Bernard, 07/02/2008 25mg day as needed M[place]in[place] Capsules gout Aspirin 1 PO qd Bharath Rosas, 11/20/2007 81mg Tablets MD Jan Mcclure 1 po bid [facility] 07/13/2005 Tablets Pedro Rosas Proscar One qd 30units [facility] 08/08/2002 5mg Pedro Rosas Glucosamine 1 Tab qd 30units [facility] 08/08/2002 Chondroitin Pedro Rosas PT Unsure Dose Nitrostat one sl q5min up 25tabs [facility] 0.3mg Tablets to 3 doses as Pedro Rosas Sub needed replace every 12 months Medications Administered in Office Medication SIG Qnty Indications Ordering Provider Date Inj, Regadenoson, 0.1 MG Neil Brewer, DO [facility] 12/22/2016 Injection Technetium TC 99M Neil Brewer, DO [facility] 12/22/2016 Tetrofosmin, Per Unit Dose Up To 40 Millicuries Injection Technetium TC 99M KAYDEN Salas 12/22/2016 Tetrofosmin, Per Unit Dose Up To 40 Millicuries Injection Immunizations CPT Code Status Date Vaccine Reaction Lot # [id number] Given 12/13/2017 Fluzone High Dose Pt.tolerated well. [id number] 59297 Given 12/27/2016 Influenza Virus Vaccine, Quadrivalent, Split, Preservative Free [id number] Given 12/23/2015 Tdap - Tetanus/Diptheria/Acellular Pertussis [id number] Given 12/18/2014 Fluzone Vaccine 31363 Given 12/17/2013 Flu Vaccine Split Virus [id number] Preservative Free For Indiv 3Yr Older Q2035 Given 12/17/2012 Afluria Vaccine 49183 Given 12/07/2009 Influenza Virus 3Yrs & Over [id number] 83766 Given 11/20/2007 Influenza Virus 3Yrs & Over 43121 Given 11/20/2007 Influenza Virus 3Yrs & Over 59098 Given 12/19/2006 Influenza Virus 3Yrs & Over 96816 Given 12/19/2006 Influenza Virus 3Yrs & Over 34729 Given 11/13/2006 Tdap - Tetanus/Diptheria/Acellular Pertussis 67597 Given 11/13/2006 Tdap - [id number] Tetanus/Diptheria/Acellular Pertussis 85450 Given 12/24/1997 Pneumovax (History By Patient) Vital Signs Date Vital Result Comment 10/23/2018 10:28am Height 69.5 inches 5'9.50" Weight 230.12 lb with shoes Heart Rate 60 /min BP Systolic Sitting 156 mmHg ule reg cuff BP Diastolic Sitting 80 mmHg ule reg cuff O2 % BldC Oximetry 93 % BMI (Body Mass Index) 33.5 kg/m2 Ejection Fraction 60-65% 10/11/18 Echo 10/10/2018 8:27am Height 69.5 inches 5'9.50" Weight [...] 33.2 kg/m2 Ejection Fraction 60-65% Echo 09/04/17 Results Test Date Facility Test Result H/L Range Note Lipid Panel - 10/04/2018 [facility] Creatine 72 U/L Normal 10- [address] Kinase(CK) [place] [address] [phone] Comp Metabolic 10/04/2018 [facility] Sodium 140 mmol/L Normal 135-[address] [place] [address] [phone] Potassium 4.6 mmol/L Normal 3.5-5.0 Chloride 106 [...] Egfr 83.0 >60 1 Lipid Profile 10/04/2018 [facility] Triglycerides 95 mg/dL 2 (Trig/Chol/HDL) [address] [place] [address] [phone] Cholesterol 145 mg/dL 3 HDL Cholesterol 46.3 [...] High: >189 Procedures Date Code Description Status 10/23/2018 64807 EKG Tracing & Interpretation Completed 10/11/2018 45980 ECHO Transthoracic, Real-Time 2D With Doppler And Color Completed Flow 10/11/2018 40563 ECHO Transthoracic, Real-Time 2D With Doppler And Color Completed Flow 10/10/2018 32234 EKG Tracing & Interpretation Completed 08/04/2008 02328014 Colonoscopy Completed Medical Devices Description No Information Available Encounters Type Date Location Provider Dx Diagnosis Office Visit 10/10/2018 [facility] Aniyah Miranda, I10 Essential ( primary) 8:30a N.P. hypertension E78.00 Pure hypercholesterolemia, unspecified I25.10 Athscl heart disease of [place] coronary artery w/o ang pctrs I35.0 Nonrheumatic aortic (valve) stenosis Assessments Date Code Description Provider 10/23/2018 I35.0 Nonrheumatic aortic (valve) stenosis Bharath Rosas M.D. 10/23/2018 I10 Essential (primary) hypertension Bharath Rosas M.D. 10/23/2018 E78.00 Pure hypercholesterolemia, unspecified Bharath Rosas M.D. 10/23/2018 I25.10 Atherosclerotic heart disease of [place] Bharath Rosas M.D. coronary artery without angina pectoris 10/23/2018 R06.00 Dyspnea Bharath Rosas M.D. 10/11/2018 I35.0 Nonrheumatic aortic (valve) stenosis Bharath Rosas M.D. 10/11/2018 I35.0 Nonrheumatic aortic (valve) stenosis [place] ECHO Schedule 10/10/2018 R94.31 Abnormal electrocardiogram [ECG] [EKG] Bharath Rosas M.D. 10/10/2018 I10 Essential (primary) hypertension Aniyah Miranda, N.P. 10/10/2018 E78.00 Pure hypercholesterolemia, unspecified Aniyah Miranda N.P. 10/10/2018 I25.10 Atherosclerotic heart disease of [place] Aniyah Miranda, N.P. coronary artery without angina pectoris 10/10/2018 I35.0 Nonrheumatic aortic (valve) stenosis Aniyah Miranda, N.P. Plan of Treatment Future Appointment(s):11/23/2018 8:30 am - Bharath Rosas M.D. at [facility]11/16/2018 8:00 am - Bharath Rosas M.D. at [facility] 3:30 pm - Aniyah Miranda N.PCarlos at [facility]12/14/2018 9:20 am - Jarrod Bernard M.D. at [facility] AT [facility]18/27/2019 - Bharath Rosas M.D.I35.0 Nonrheumatic aortic (valve) stenosisNew Orders: Transesophageal Echocardiogram, Scheduled: 11/16/18I10 Essential (primary) hypertensionNew Medication:Lisinopril 2.5 mg - 1 by mouth every dayE78.00 Pure hypercholesterolemia, mgihnshcjcdL54.10 Atherosclerotic heart disease of [place] coronary artery without angina irccliszP87.00 DyspneaNew Orders:Stress Test, Exercise Nuclear, Scheduled: 11/23/18Follow up:ov PROCEDURES RN 2 weeks ov [facility] 8 m Functional Status Description No Information Available Mental Status Description No Information Available Referrals Description No Information Available
[2018-11-17 11:56] LABS: ABS Eosinophils 0.2 10^3/ul (0-0.6); ABS Lymphocytes 1.2 10^3/ul (1.0-4.8); ABS Monocytes 0.5 10^3/ul (0-0.8); ABS Neutrophils 4.1 10^3/ul (1.5-7.7); Eosinophil % 2.7 %; Hematocrit 45 % (42-52); Hemoglobin 15.6 g/dL (14.0-18.0); Lymphocyte % 19.6 %; Mean Corpuscular HGB Conc 35 g/dL (31-36); Mean Corpuscular Hemoglobin 33 pg (27-31); Mean Corpuscular Volume 94 fL (80-94); Mean Platelet Volume 9.1 fL (7.4-10.4); Platelet Count 218 10^3/uL (150-450); Red Blood Count 4.77 10^6 /uL (4.18-5.48); Red Cell Distribution Width 13 % (10-15)
[2018-11-17 12:01] LABS: INR 1.13 (0.82-1.09)
[2018-11-17 12:14] LABS: ALT 23 U/L (7-52); AST 19 U/L (13-39); Albumin 4.1 g/dL (3.2-5.2); Albumin/Globulin Ratio 1.6 (1-3); Alkaline Phosphatase 76 U/L (34-104); Anion Gap 7 mmol/L (2-11); BUN/Creatinine Ratio 22.2 (8-20); Blood Urea Nitrogen 22 mg/dL (6-24); CO2 Carbon Dioxide 25 mmol/L (22-32); Calcium 9.2 mg/dL (8.6-10.3); Chloride 106 mmol/L (101-111); EGFR African American 86.9 (>60); EGFR Non-African American 71.8 (>60); Globulin 2.6 g/dL (2-4); Glucose 130 mg/dL (70-100); Sodium 138 mmol/L (135-145); Total Protein 6.7 g/dL (6.4-8.9)
[2018-11-17 12:18] LABS: CKMB ng/mL 1.3 ng/mL (0.6-6.3)
[2018-11-17 12:19] LABS: Troponin I 0.32 ng/mL (<0.04)
[2018-11-17] MEDS ORDERED: Metoprolol Tartrate TAB* 25 MG PO ONE (12:32)
[2018-11-17] MEDS ORDERED: Heparin for STEMI(*) 5,000 UNITS/ML 1 ML VIAL IV ONE (12:32)
[2018-11-17] MEDS ORDERED: Aspirin 81 mg CHEW TAB* 81 MG TAB.CHEW PO ONE (12:32)
[2018-11-17 12:41] LABS: TSH (Thyroid Stimulating Horm) 0.48 mcIU/mL (0.34-5.60)
[2018-11-17] MEDS ORDERED: Acetaminophen TAB* 325 MG PO PRN (13:50)
[2018-11-17] MEDS ORDERED: Nitroglycerin TAB 0.4 MG* 0.4 MG TAB SL PRN (13:50)
[2018-11-17] MEDS: Heparin DRIP 25,000 UNITS(*) 25,000 UNITS/500 ML BAG IV SCH (13:56)
[2018-11-17] MEDS ORDERED: Heparin VIAL(*) 5000 UNITS/ML VIAL (FIVE THOUSAND) IV SCH ×2 (14:00→19:46)
[2018-11-17 15:31] LABS: Troponin I 0.39 ng/mL (<0.04)
--- NOTE | 2018-11-17 15:47 | HP ---
CC: Dr. Bernard; Dr. Rosas; Dr. Brewer HISTORY AND PHYSICAL: DATE OF ADMISSION: 11/17/18 TIME OF EVALUATION: 1:15 p.m. PRIMARY CARE PROVIDER: Dr. Bernard. VASCULAR TECHNICIAN: Dr. Rosas. CONSULTING VASCULAR TECHNICIAN: Dr. Brewer. CHIEF COMPLAINT: Chest tightness. HISTORY OF PRESENT ILLNESS: Mr. Gordon is an 87-year-old male with a past medical history of coronary artery disease, status post stents; hypertension; obesity; BPH; hyperlipidemia; aortic stenosis who p resents to the emergency room with complaints of chest pain and tightness. The patient states that he has had episodes of chest pressure and tightness for "awhile". He had bee n started on lisinopril as outpatient, and initially, he thought that his chest pressure was secondar y to the medication. He followed up with Dr. Rosas's office and his blood pressure was in the low 1 00s and lisinopril had been added at 2.5 mg a day. Due to his complaints, the lisinopril had been ch anged to every other day and he was still having palpitations and chest tightness. At that point, he stopped taking the lisinopril altogether, and as per Aniyah Miranda's note from 11/12/18, his chest pre ssure had almost completely resolved. The patient has a history of aortic stenosis and he underwent a transesophageal echocardiogram with Bal Rosas on 11/16/18 and that showed an ejection fraction of 60% to 65% with severe aortic stenosis. The plan was for the patient to have a stress test as outpatient, and depending on those results, he will be referred to [facility] for further evaluation. The patient states that he was advised by Dr. Rosas that if he had other episodes of chest pressure and tightness, he should come to the emergency room for further evaluation. The patient states that he has had 2 to 3 episodes of this chest tightness a day. When asked to grade it, he says that it is not a pain and he cannot put a number to it, but just that he feels a pressur e and tightness on his chest, it lasts 2 to 3 minutes and then it goes away. He says that it may hap pen with exertion, but it has also happened at rest while just watching television. He describes exertional dyspnea, but states that this has been going on for many years and he does no t feel that this is changed. He is able to sleep with just 1 pillow and he denies waking up in the m iddle of the night with shortness of breath. PAST MEDICAL HISTORY: 1. Coronary artery disease. The patient had a stent to the left circumflex in 1988 when he was in [facility]; another stent to the RCA in 2002, this was done in [place]. He had another stent placed mor e distally in the RCA in 2012. 2. Hypertension. 3. Obesity with a BMI of 31. 4. Severe aortic stenosis. 5. BPH. 6. Hyperlipidemia. PAST SURGICAL HISTORY: 1. Status post left knee arthroscopy. 2. Status post appendectomy. 3. Status post pilonidal cyst resection. 4. Status post cataract removal. 5. Colonoscopy with polyp and bleeding post procedure. MEDICATIONS LIST: 1. Aspirin 81 mg p.o. daily. 2. Vitamin B12 1000 mcg p.o. daily. 3. Cardizem CD 120 mg p.o. daily. 4. Eplerenone 25 mg p.o. daily. 5. Finasteride 5 mg p.o. daily. 6. Indomethacin 25 mg p.o. t.i.d. as needed for gout. 7. Saw [place] 450 mg p.o. daily. 8. Simvastatin 10 mg p.o. at bedtime. ALLERGIES: With LIPITOR, the patient had insomnia. FAMILY HISTORY: Mother passed of an ID in her 60s. SOCIAL HISTORY: The patient is a former smoker, 2 packs per day for 20 years. He quit in the 1960s. He occasionally smokes pipes. Rarely consumes alcohol. No drug use. He is retired from the [employer] and surrogate decision maker is his , Savannah Gordon, phone number is [phone]. REVIEW OF SYSTEMS: A 14-point review of systems was performed and all other pertinent negative and p ositive findings are in the HPI. PHYSICAL EXAMINATION GENERAL: The patient is a pleasant, obese, elderly gentleman sitting up in the ED stretcher, in no a cute distress. VITAL SIGNS: Temperature 98.1, heart rate is 64, respiratory rate 16, oxygen saturation 95% on room air, blood pressure is 135/84. HEENT: Pupils are equal. Moist mucous membranes. CHEST: Breath sounds present bilaterally with no added sounds. CVS: Normal S1 and S2. Regular rate and rhythm with a systolic murmur. ABDOMEN: Obese, bowel sounds present. EXTREMITIES: No edema. NEUROLOGIC: He is alert and oriented x3. Face is symmetric. Speech is clear. Able to move all 4 ex tremities. LABORATORY/IMAGING DATA: CBC showed WBC of 6, hemoglobin of 15.6, hematocrit of 45, platelets of 21 8 with 68% neutrophils. INR is 1.1, APTT 35. Chemistry showed a sodium of 138, potassium of 4, chlo ride 106, bicarb 25, BUN of 22, creatinine of 0.99, glucose 130, calcium 9.2, magnesium is 2. LFTs a re normal. Troponin is 0.32. TSH is 0.48. EKG done 11/17/18 at 11:24 a.m. shows sinus rhythm at 64 beats per minute with no acute ischemic tesfaye ges. Q-waves in III, in aVF. No significant change form EKG done yesterday. Chest x-ray showed no definite acute cardiac or pulmonary process by radiograph, only subsegmental at electasis at the left costophrenic angle is likely. I reviewed the film and I am in agreement with t his reading. ASSESSMENT AND PLAN: Mr. Gordon is an 87-year-old male with a past medical history of coronary artery disease, status post stents; hypertension; obesity with a BMI of 31; severe aortic stenosis; BPH; hyp erlipidemia; hypertension who presented to emergency room with complaints of recurrent episodes of ch est tightness, found to have amu-WX-cbfcobkgz myocardial infarction. 1. Cwi-KS-pzwxydnqd myocardial infarction. The patient has known coronary artery disease and he was already planned for a stress test as outpatient. I believe his episodes of chest discomfort were li lit associated with his coronary artery disease. He will be admitted to the telemetry floor. He will be continued on aspirin and statin and he will b e on the heparin drip. We will trend troponins until peak, and cardiology consultation was requested with Dr. Brewer. The patient just had a transesophageal echocardiogram done yesterday, so I will not order a repeat on e at this time. The patient is on Cardizem as outpatient and his heart rate is already controlled, so I do not think a beta-kevin is indicated at this time unless Cardiology decides to change his regimen. 2. Hypertension. It is controlled. We will continue his diltiazem and eplerenone. 3. Hyperlipidemia, we will continue simvastatin. 4. BPH. We will continue finasteride. 5. DVT prophylaxis. The patient has a score of 4 on the DVT Prophylaxis Assessment Guide and he cordell l be started on a heparin drip for his non-STEMI. 6. Code status was discussed with the patient, his , and his son at bedside and he wishes to be a full code. TIME SPENT: Approximately 60 minutes was spent with the patient interview, medical records review, p hysical examination to complete this admission, more than half that time was spent [id number] with the patient and coordination of care. [id number]/[facility] #: [id number]
--- NOTE | 2018-11-17 19:15 | CONSULT ---
Subjective Date of Service: 11/17/18 Interval History: Date of admission and consult: 11/17/2018 PCP: Dr. Bernard Toll Line Inspector: Dr. Rosas CC: Chest discomfort Reason for consult NSTEMI HPI Mr. Gordon is an 87 year old man who was in his usual state of health until September of this year. He was noted to be dizzy and have high BP. Lisinopril was started. Sometime after that he noticed intermittent chest pressure which he related to the lisinopril. He has seasonal allergies this has effected his breathing similarly to every other year and resolves yearly when he goes to [place] for the winter and this has not been a concern of his. He had a LEOLA yesterday. There were plans for an upcoming stress test to further evaluate. He is now admitted with chest tightness and ruled in for ACS with abnormal troponin level. He is currently asymptomatic. There are records that his angina symptoms in the past have been lightheadedness, lack of energy and dyspnea. He states he never actually had chest discomfort as a symptom although this was listed as the indication for a 1998 PCI to an OM lesion. Allergies: Lipitor - insomnia on 20 mg qd, okay on 10 mg Pmhx: CAD s/p PCI Moderate aortic stenosis on 10/11/2018 TTE Obesity Seasonal allergies (fall he relates to ragweed) Dyslipidemia HTN PAST SURGICAL HISTORY: 1. Status post left knee arthroscopy. 2. Status post appendectomy. 3. Status post pilonidal cyst resection. 4. Status post cataract removal. 5. Colonoscopy with polyp and bleeding post procedure. FH: Father: due to Cause unknown - in his 70's. Mother: due to SC - in her 60's. Siblings:1 - Brother: at age 78 cause unknown. SOCIAL HISTORY: The patient is a former smoker, 2 packs per day for 20 years. He quit in the 1960s. He occasionally smokes pipes. Rarely consumes alcohol. No drug use. He is retired from the [employer] and surrogate decision maker is his , Savannah Gordon, phone number is [phone]. Medications Active Medications: Acetaminophen (Tylenol Tab*) 650 mg PO Q6H PRN PRN Reason: MILD PAIN or TEMP > 100.4 Aspirin (Aspirin Ec Tab*) 81 mg PO DAILY [facility] Cyanocobalamin (Vitamin B12 Tab*) 1,000 mcg PO DAILY [facility] Diltiazem HCl (Cardizem Cd Cap*) 120 mg PO QAM [facility] Eplerenone (Inspra (Nf)) 25 mg PO DAILY [facility]; Protocol Finasteride (Proscar Tab*) 5 mg PO DAILY [facility] Heparin Sodium (Porcine) (Heparin Vial(*)) 0 units IV .PER PROTOCOL [facility] Heparin Sodium/Dextrose (Heparin Drip 25,000 Units(*)) 25,000 units in 500 mls @ 0 mls/hr IV PER RATE [facility]; Protocol Last Admin: 11/17/18 13:56 Dose: 20 mls/hr Nitroglycerin (Nitroglycerin Tab 0.4 Mg*) 0.4 mg SL Q5M PRN PRN Reason: ANGINA Simvastatin (Zocor(Nf)) 10 mg PO BEDTIME [facility] Home Medications: Aspirin [Aspir 81] 81 mg PO DAILY 01/16/12 [History Confirmed 11/17/18] Finasteride [Proscar] 5 mg PO DAILY 01/16/12 [History Confirmed 11/17/18] Cyanocobalamin TAB* [Vitamin B12 TAB*] 1,000 mcg PO DAILY 07/20/17 [History Confirmed 11/17/18] Diltiazem CD CAP* [Cardizem CD CAP*] 120 mg PO QAM 11/15/18 [History Confirmed 11/17/18] Indomethacin CAP* [Indocin CAP*] 25 mg PO TID PRN 11/15/18 [History Confirmed ] Saw [place] [Saw [place]] 1 tab PO DAILY 11/15/18 [History Confirmed ] Simvastatin TAB(NF) [Zocor 10 MG (NF)] 10 mg PO BEDTIME 11/15/18 [History Confirmed 11/17/18] Eplerenone [Inspra] 25 mg PO DAILY #30 11/16/18 [Rx Confirmed 11/17/18] Review of Systems - Measurements Intake and Output: Intake and Output Last 24 Hours 11/15/18 11/16/18 11/17/18 11/18/18 06:59 06:59 06:59 06:59 Weight 217 lb - Review of Systems Constitutional Symptoms: Negative: Weight Gain, Weight Loss, Weakness, Fatigue, Fever, Night Sweats Dermatology: Negative: Rash, Skin Lesions HEENT: Negative: Change in Hearing, Vertigo Eyes: Negative: Change in Vision, Double Vision Thyroid: Positive: Palpitations Negative: Weight Loss, Weight Gain Pulmonary: Negative: Hemoptysis, Home Oxygen Cardiology: Positive: Chest Pain Negative: Shortness of Breath, Palpitations, Swelling of Ankles, Peripheral Vascular Dis, Edema, Syncope, Claudication, Paroxysmal Nocturnal Dyspnea, Orthopnea Gastroenterology: Negative: Abdominal Pain, Nausea, Vomiting, Anorexia, Blood in Stools, Haematemesis, Melena Genital - Urinary: Negative: Dysuria, Hematuria Musculoskeletal: Negative: Joint Pain, Joint Stiffness Endocrinology: Positive: Obesity Negative: Polydipsia, Polyuria Hematologic/Lymphatic: Positive: Use of Antiplatelet Drugs Negative: Use of Anticoagulant Neurology: Negative: Hx of Stroke\TIA, Hx Seizures Psychiatry: Negative: Unusual Anxiety, Suicidal Ideation Allergic/Immunologic: Negative: Hx HIV, Immunocompromise Review of Systems Statement: All other review of systems negative, unless stated above. Objective Vital Signs: Temp Pulse Resp BP Pulse Ox 97.1 F 47 18 145/78 97 11/17/18 15:15 11/17/18 15:15 11/17/18 15:15 11/17/18 15:15 11/17/18 15:15 Oxygen Devices in Use Now: None Appearance: obese, nad, slightly anxious appearing Ears/Nose/Mouth/Throat: Clear Oropharnyx, Mucous Membranes Moist Neck: Trachea Midline, - - uncertain jvp Respiratory: Symmetrical Chest Expansion and Respiratory Effort, Clear to Auscultation Cardiovascular: RRR, No Edema, - - distant, soft systolic murmur Abdominal: - - obese, soft Extremities: No Edema, No Clubbing, Cyanosis Skin: No Rash or Ulcers Neurological: Alert and Oriented x 3 Laboratory Results: 11/17/18 11:42 11/17/18 11:42 INR (Anticoag Therapy) 1.13 (0.82-1.09) H 11/17/18 11:42 APTT 35.2 seconds (26.0-38.0) 11/17/18 11:42 Total Bilirubin 0.70 mg/dL (0.2-1.0) 11/17/18 11:42 AST 19 U/L (13-39) 11/17/18 11:42 ALT 23 U/L (7-52) 11/17/18 11:42 Alkaline Phosphatase 76 U/L (34-104) 11/17/18 11:42 CK-MB (CK-2) 1.3 ng/mL (0.6-6.3) 11/17/18 11:42 B-Natriuretic Peptide 30 pg/mL (<=100) 11/17/18 11:42 Total Protein 6.7 g/dL (6.4-8.9) 11/17/18 11:42 Albumin 4.1 g/dL (3.2-5.2) 11/17/18 11:42 Globulin 2.6 g/dL (2-4) 11/17/18 11:42 Albumin/Globulin Ratio 1.6 (1-3) 11/17/18 11:42 TSH 0.48 mcIU/mL (0.34-5.60) 11/17/18 11:42 11/17/18 11/17/18 11:42 15:01 Troponin I 0.32 H* 0.39 H* 10/2018 tri 95, tchol 145, hdl 46.3, ldl 80 Diagnostic Imaging: Coronary Artery Disease (CAD) - : LCX stent in [place], [place]. 02/1998: chest pain indication - s/p PCI/KD to obstructive OM lesion 08/2002: Asymptomatic, abnormal stress tests - s/p PCI KD to critical pRCA 7 Dr. Cordova: cardiac cath, right radial site. indication MAR/lack of energy/lightheadedness, inferior WMA on stress echo - Intermediate D1 lesion - Lcx unremarkable - RCA mid stent noted followed obstructive distal lesions treated with KD x 2 Exam Date: 11/17/18 IMPRESSION: 1. NO DEFINITE ACUTE CARDIAC PULMONARY PROCESS BY RADIOGRAPH. 2. SUBSEGMENTAL ATELECTASIS AT THE LEFT COSTOPHRENIC ANGLE IS LIKELY. echo 10/11/2018 LVEf 60-65% with mild LVH and normal LA size, moderate with peak velocity 3 m /s, mean gradient 20 mmHg and RONY VTI 1.23 cm^2 EKG Data: ekg 11/17/2018: NSR 64 bpm, old inferior SC, 1 avb, similar to 11/16/2018 Assessment/Plan Mr. Gordon is an 87 year old man admitted with NSTEMI. He's currently pain free without hemodynamic instability, recurrent angina, ventricular arrhythmias or CHF. Cardiac catheterization with intent for revascularization indicated and recommended. Risks, benefits and alternatives discussed and patient wished to proceed. Based on his prior angiograms it's highly unlikely he would have CAD that would require CABG. He did well on plavix previously and will load with 600 mg now and then 75 mg daily tomorrow (ordered). Continue heparin gtt and other HAND EDGER medications. Tentative plan for procedure Monday11/19/2018 ( Discussed with Dr. Chin). With regards to the aortic stenosis, his symptoms can be re-evaluated post revascularization as an outpatient. Thank you for allowing me to participate in the cardiovascular care of this patient. Please do not hesitate to contact me with questions or concerns.
[2018-11-17] MEDS ORDERED: Clopidogrel TAB* 300 MG PO ONE (19:39)
[2018-11-17 19:46] LABS: Troponin I 0.37 ng/mL (<0.04)
[2018-11-17] MEDS: CMC: Simvastatin TAB(NF) 10 MG TAB PO SCH (21:00)
[2018-11-17 21:49] LABS: Urine Appearance Clear; Urine Bilirubin Negative (Negative); Urine Blood Negative (Negative); Urine Color Yellow; Urine Glucose Negative (Negative); Urine Ketones Negative (Negative); Urine Nitrite Negative (Negative); Urine Protein Negative (Negative); Urine Urobilinogen Negative (Negative)
[2018-11-18 07:04] LABS: ABS Basophils 0.1 10^3/ul (0-0.2); ABS Eosinophils 0.3 10^3/ul (0-0.6); ABS Lymphocytes 1.9 10^3/ul (1.0-4.8); ABS Monocytes 0.7 10^3/ul (0-0.8); ABS Neutrophils 4.3 10^3/ul (1.5-7.7); Eosinophil % 3.9 %; Hematocrit 45 % (42-52); Hemoglobin 15.9 g/dL (14.0-18.0); Lymphocyte % 26.2 %; Mean Corpuscular HGB Conc 35 g/dL (31-36); Mean Corpuscular Hemoglobin 33 pg (27-31); Mean Corpuscular Volume 94 fL (80-94); Mean Platelet Volume 9.1 fL (7.4-10.4); Platelet Count 218 10^3/uL (150-450); Red Blood Count 4.78 10^6 /uL (4.18-5.48); Red Cell Distribution Width 13 % (10-15); White Blood Count 7.3 10^3/uL (3.5-10.8)
[2018-11-18] MEDS: Diltiazem CD CAP* 120 MG PO SCH (08:30)
[2018-11-18] MEDS: Cyanocobalamin TAB* 500 MCG PO SCH (08:31)
[2018-11-18] MEDS: Aspirin EC TAB* 81 MG TAB.EC PO SCH (08:31)
[2018-11-18] MEDS: Finasteride TAB* 5 MG PO SCH (08:31)
[2018-11-18] MEDS: Clopidogrel TAB* 75 MG PO SCH (08:31)
[2018-11-18] MEDS: CMC: Epleronone (NF) 25 MG TAB PO SCH (08:32)
--- NOTE | 2018-11-18 10:01 | PN ---
Subjective Date of Service: 11/18/18 Interval History: f/u nstemi, aortic stenosis patient had 50 minutes of spontaneous angina this AM (chest pressure, b/l finger tingling and nausea) Resolved without intervention no chest pain now tele: NSR/SB, ectopy, sleeping pauses up to 2.3 seconds Medications Active Medications: Acetaminophen (Tylenol Tab*) 650 mg PO Q6H PRN PRN Reason: MILD PAIN or TEMP > 100.4 Aspirin (Aspirin Ec Tab*) 81 mg PO DAILY [facility] Last Admin: 11/18/18 08:31 Dose: 81 mg Clopidogrel Bisulfate (Plavix Tab*) 75 mg PO DAILY [facility] Last Admin: 11/18/18 08:31 Dose: 75 mg Cyanocobalamin (Vitamin B12 Tab*) 1,000 mcg PO DAILY [facility] Last Admin: 11/18/18 08:31 Dose: 1,000 mcg Diltiazem HCl (Cardizem Cd Cap*) 120 mg PO QAM [facility] Last Admin: 11/18/18 08:30 Dose: 120 mg Eplerenone (Inspra (Nf)) 25 mg PO DAILY [facility]; Protocol Last Admin: 11/18/18 08:32 Dose: 25 mg Finasteride (Proscar Tab*) 5 mg PO DAILY [facility] Last Admin: 11/18/18 08:31 Dose: 5 mg Heparin Sodium (Porcine) (Heparin Vial(*)) 0 - 4,000 units IV .PER PROTOCOL [facility] Heparin Sodium/Dextrose (Heparin Drip 25,000 Units(*)) 25,000 units in 500 mls @ 0 mls/hr IV PER RATE [facility]; Protocol Last Admin: 11/17/18 13:56 Dose: 20 mls/hr Isosorbide Mononitrate (Imdur Er Tab*) 30 mg PO DAILY [facility] Nitroglycerin (Nitroglycerin Tab 0.4 Mg*) 0.4 mg SL Q5M PRN PRN Reason: ANGINA Simvastatin (Zocor(Nf)) 10 mg PO BEDTIME [facility] Last Admin: 11/17/18 21:00 Dose: 10 mg Objective Vital Signs: Temp Pulse Resp BP Pulse Ox 97.4 F 49 16 143/66 96 11/18/18 07:31 11/18/18 07:31 11/18/18 07:31 11/18/18 07:31 11/18/18 07:31 Oxygen Devices in Use Now: None Appearance: nad, pleasant Ears/Nose/Mouth/Throat: Clear Oropharnyx, Mucous Membranes Moist Neck: Trachea Midline, - - uncertain jvp Respiratory: Symmetrical Chest Expansion and Respiratory Effort, Clear to Auscultation Cardiovascular: RRR, No Edema, - - distant, soft systolic murmur Abdominal: - - obese, soft Extremities: No Edema, No Clubbing, Cyanosis Skin: No Rash or Ulcers Neurological: Alert and Oriented x 3 Laboratory Results: 11/18/18 06:45 11/17/18 11:42 INR (Anticoag Therapy) 1.13 (0.82-1.09) H 11/17/18 11:42 APTT 79.1 seconds (26.0-38.0) H 11/18/18 08:46 Total Bilirubin 0.70 mg/dL (0.2-1.0) 11/17/18 11:42 AST 19 U/L (13-39) 11/17/18 11:42 ALT 23 U/L (7-52) 11/17/18 11:42 Alkaline Phosphatase 76 U/L (34-104) 11/17/18 11:42 CK-MB (CK-2) 1.3 ng/mL (0.6-6.3) 11/17/18 11:42 B-Natriuretic Peptide 30 pg/mL (<=100) 11/17/18 11:42 Total Protein 6.7 g/dL (6.4-8.9) 11/17/18 11:42 Albumin 4.1 g/dL (3.2-5.2) 11/17/18 11:42 Globulin 2.6 g/dL (2-4) 11/17/18 11:42 Albumin/Globulin Ratio 1.6 (1-3) 11/17/18 11:42 TSH 0.48 mcIU/mL (0.34-5.60) 11/17/18 11:42 11/17/18 11/17/18 11/17/18 11:42 15:01 19:13 Troponin I 0.32 H* 0.39 H* 0.37 H* Diagnostic Imaging: Coronary Artery Disease (CAD) - : LCX stent in [place], [place]. 02/1998: chest pain indication - s/p PCI/KD to obstructive OM lesion 08/2002: Asymptomatic, abnormal stress tests - s/p PCI KD to critical pRCA 7.13 Dr. Cordova: cardiac cath, right radial site. indication MAR/lack of energy/lightheadedness, inferior WMA on stress echo - Intermediate D1 lesion - Lcx unremarkable - RCA mid stent noted followed obstructive distal lesions treated with KD x 2 Exam Date: 11/17/18 IMPRESSION: 1. NO DEFINITE ACUTE CARDIAC PULMONARY PROCESS BY RADIOGRAPH. 2. SUBSEGMENTAL ATELECTASIS AT THE LEFT COSTOPHRENIC ANGLE IS LIKELY. echo 10/11/2018 LVEf 60-65% with mild LVH and normal LA size, moderate with peak velocity 3 m /s, mean gradient 20 mmHg and RONY VTI 1.23 cm^2 EKG Data: ekg 11/17/2018: NSR 64 bpm, old inferior UT, 1 avb, similar to 11/16/2018 Assessment/Plan Mr. Gordon is an 87 year old man admitted with NSTEMI. He's currently pain free without hemodynamic instability, ventricular arrhythmias or CHF. He did have spontaneous angina this AM self-resolved now asymptomatic. HR is too low for increase of CCB or additional beta-kevin (I suspect yesterday afternoon BB wore off provoking angina). Will add 30 mg of po imdur (can d/c post- revascularization) and use SL PRN NTG for recurrent angina and give additional nitrates. otherwise continue current cardiac medications. Cardiac catheterization with intent for PCI revascularization if able tentatively plan for procedure Monday11/19/[address] Chin if remains clinically stable. Thank you for allowing me to participate in the cardiovascular care of this patient. Please do not hesitate to contact me with questions or concerns.
[2018-11-18] MEDS: Isosorbide Mononitrate ER TAB* 30 MG PO SCH (10:08)
[2018-11-18] MEDS: Heparin DRIP 25,000 UNITS(*) 25,000 UNITS/500 ML BAG IV SCH (16:37)
--- NOTE | 2018-11-18 17:01 | PN ---
Subjective Date of Service: 11/18/18 Interval History: No events overnight. [place] 45 min episode of angina at rest this AM, associated with tingling in fingers, and self-resolved. Denies pain now. Pt also walked around room and back and forth to bathroom and had no recurrence. Feels well on interview. Plan for cath tomorrow. Objective Active Medications: Acetaminophen (Tylenol Tab*) 650 mg PO Q6H PRN PRN Reason: MILD PAIN or TEMP > 100.4 Aspirin (Aspirin Ec Tab*) 81 mg PO DAILY [facility] Last Admin: 11/18/18 08:31 Dose: 81 mg Clopidogrel Bisulfate (Plavix Tab*) 75 mg PO DAILY [facility] Last Admin: 11/18/18 08:31 Dose: 75 mg Cyanocobalamin (Vitamin B12 Tab*) 1,000 mcg PO DAILY [facility] Last Admin: 11/18/18 08:31 Dose: 1,000 mcg Diltiazem HCl (Cardizem Cd Cap*) 120 mg PO QAM [facility] Last Admin: 11/18/18 08:30 Dose: 120 mg Eplerenone (Inspra (Nf)) 25 mg PO DAILY [facility]; Protocol Last Admin: 11/18/18 08:32 Dose: 25 mg Finasteride (Proscar Tab*) 5 mg PO DAILY [facility] Last Admin: 11/18/18 08:31 Dose: 5 mg Heparin Sodium (Porcine) (Heparin Vial(*)) 0 - 4,000 units IV .PER PROTOCOL [facility] Heparin Sodium/Dextrose (Heparin Drip 25,000 Units(*)) 25,000 units in 500 mls @ 0 mls/hr IV PER RATE [facility]; Protocol Last Admin: 11/18/18 16:37 Dose: 20 mls/hr Sodium Chloride (Ns 0.9% 1000 Ml) 1,000 mls @ 100 mls/hr IV .per rate [facility] Isosorbide Mononitrate (Imdur Er Tab*) 30 mg PO DAILY [facility] Last Admin: 11/18/18 10:08 Dose: 30 mg Nitroglycerin (Nitroglycerin Tab 0.4 Mg*) 0.4 mg SL Q5M PRN PRN Reason: ANGINA Last Admin: 11/18/18 11:23 Dose: 0.4 mg Simvastatin (Zocor(Nf)) 10 mg PO BEDTIME [facility] Last Admin: 11/17/18 21:00 Dose: 10 mg Vital Signs - 8 hr 11/18/18 11/18/18 11:40 15:00 Temperature 97.1 F 97.7 F Pulse Rate 59 65 Respiratory 20 18 Rate Blood Pressure 127/69 103/60 (mmHg) O2 Sat by Pulse 93 94 Oximetry Oxygen Devices in Use Now: None Appearance: well appearing, NAD, alert and interactive Ears/Nose/Mouth/Throat: Clear Oropharnyx, Mucous Membranes Moist Neck: Trachea Midline Respiratory: Symmetrical Chest Expansion and Respiratory Effort, Clear to Auscultation Cardiovascular: NL Sounds; No Murmurs; No JVD, RRR Abdominal: NL Sounds; No Tenderness; No Distention, No Hepatosplenomegaly Extremities: No Edema Neurological: Alert and Oriented x 3 Result Diagrams: 11/18/18 06:45 11/17/18 11:42 Assess/Plan/Problems-Billing Assessment: 87M with CAD s/p PCI, HTN, obesity, , BPH, who presents with recurrent chest tightness, found with NTSTEMI. - Patient Problems (1) NSTEMI (non-ST elevated myocardial infarction) Comment: Trop peak 0.39 in pt with typical chest pain, multiple risk factors. - on heparin gtt - cont DAPT - cont simvastatin (consider switch to atorva) - appreciate cards recs, plan for cardiac cath on 11/19 - cont isosorbide mononitrate - cont nitroglycerin SL prn pain (2) HTN (hypertension) Comment: - cont home dilt 120, epleronone 25 (3) BPH (benign prostatic hyperplasia) Comment: cont home finasteride (4) DVT prophylaxis Current Visit: Yes Status: Acute Code(s): Z29.9 - ENCOUNTER FOR PROPHYLACTIC MEASURES, UNSPECIFIED SNOMED Code(s): 330920550 Comment: on therapeutic ac
[2018-11-18] MEDS: CMC: Simvastatin TAB(NF) 10 MG TAB PO SCH (22:03)
[2018-11-19 05:28] LABS: ABS Eosinophils 0.2 10^3/ul (0-0.6); ABS Lymphocytes 1.4 10^3/ul (1.0-4.8); ABS Monocytes 0.8 10^3/ul (0-0.8); ABS Neutrophils 4.5 10^3/ul (1.5-7.7); Hematocrit 39 % (42-52); Lymphocyte % 20.2 %; Mean Corpuscular HGB Conc 36 g/dL (31-36); Mean Corpuscular Hemoglobin 34 pg (27-31); Mean Corpuscular Volume 94 fL (80-94); Platelet Count 189 10^3/uL (150-450); Red Blood Count 4.17 10^6 /uL (4.18-5.48); Red Cell Distribution Width 13 % (10-15); White Blood Count 6.9 10^3/uL (3.5-10.8)
[2018-11-19 05:40] LABS: BUN/Creatinine Ratio 23.5 (8-20); Calcium 8.8 mg/dL (8.6-10.3); EGFR Non-African American 69.4 (>60); Potassium 4.2 mmol/L (3.5-5.0)
[2018-11-19] MEDS ORDERED: NS 0.9% 1000 ML** 1,000 ML IV SCH ×3 (06:00→10:00)
[2018-11-19] MEDS: Clopidogrel TAB* 75 MG PO SCH (07:34)
[2018-11-19] MEDS: Aspirin EC TAB* 81 MG TAB.EC PO SCH (07:34)
[2018-11-19] MEDS ORDERED: fentaNYL* 50 MCG/ML 2 ML VIAL (100 MCG VIAL) ONE (07:56)
[2018-11-19] MEDS ORDERED: Midazolam* 1 MG/ML 5 ML VIAL (5 MG) ONE (07:56)
[2018-11-19] MEDS ORDERED: Heparin 2 UNITS/ML IVPREMIX* 3,000 ML IV ONE (07:57)
[2018-11-19] MEDS ORDERED: Lidocaine 1% INJ* 10 MG/ML 30 ML SDV ONE (07:57)
[2018-11-19] MEDS ORDERED: Iohexol 350 (CONTRAST) 200 ML MDV IV ONE ×3 (07:57→09:13)
[2018-11-19] MEDS ORDERED: Heparin(*) 1000 UNIT/ML 10 ML VIAL CATH LAB IV ONE (08:10)
[2018-11-19] MEDS ORDERED: Adenosine* 3 MG/ML VIAL ONE (08:48)
[2018-11-19] MEDS ORDERED: nitroGLYCERIN DRIP* 25,000 MCG/250 ML BTL ONE (08:50)
[2018-11-19] MEDS ORDERED: Bivalirudin(*) 250 MG VIAL ONE (09:10)
[2018-11-19] MEDS: Cyanocobalamin TAB* 500 MCG PO SCH ×2 (09:20→12:46)
[2018-11-19] MEDS: CMC: Epleronone (NF) 25 MG TAB PO SCH (09:21)
[2018-11-19] MEDS: Diltiazem CD CAP* 120 MG PO SCH (09:21)
[2018-11-19] MEDS: Isosorbide Mononitrate ER TAB* 30 MG PO SCH ×2 (09:21→12:45)
[2018-11-19] MEDS: Finasteride TAB* 5 MG PO SCH ×2 (09:21→12:46)
[2018-11-19] MEDS ORDERED: Nitroglycerin TAB 0.4 MG* 0.4 MG TAB SL PRN (09:51)
[2018-11-19] MEDS ORDERED: fentaNYL* 50 MCG/ML 2 ML VIAL (100 MCG VIAL) IV PRN (09:51)
--- NOTE | 2018-11-19 14:44 | PN ---
Hospitalist Progress Note Date of Service: 11/19/18 Subjective- Pt feels very well and says hes ready to go home. No overnight events Objective- Appearance- well appearing man, alert and interactive EENT- clear, oropharynx, mucous membranes moist Neck-supple, midline Respiratory- Bilateral lungs clear to auscultation Cardiovascular- no murmur heard Abdominal- soft, no tenderness or distension extremities- no edema, clubbing, cyanosis neuro- alert, oriented x3 RBC- 4.17 Hct- 39 MCH-34 BUN/creatinine-23.5 glucose-105 Vitals- Heart rate-49 pulse rate-50 Resp rate- 16 O2 saturation- 88 Blood pressure- 147/75 EKG-sinus bradycardia Assessment/Plan- 87 yr old male s/p PCI, HTN, obesity, , BPH, who presented with recurrent chest tightness and found to have a NSTEMI. Pt went to logging rafter laborer today and received 2 stents(details pending) 1.)NSTEMI -Pt went to logging rafter laborer and had 2 stents placed(details pending) -Heparin 25,000 units in 500 mls IV -Atorvastatin calcium 10mg PO 1700 DARREL -Clopidogrel 75mg PO daily -Aspirin 81mg PO daily -Isosorbide mononitrate 30mg PO daily -nitroglycerin .4mg SL Q5M PRN 2.)HTN -Diltiazem 120mg PO QAM 3.) BPH - Finasteride 5mg PO daily 4.)DVT prophylaxis -unspecified
[2018-11-19] MEDS ORDERED: Atorvastatin* 10 MG TAB PO SCH (17:00)
--- NOTE | 2018-11-19 17:27 | PN ---
Subjective Date of Service: 11/19/18 Interval History: Mr. Gordon went to the skill labor this morning with Dr. Chin and is seen in the ICU after the procedure. He feels "great" and has no complaints. His and daughter are at the bedside. He has eaten some lunch, has no nausea/vomiting, chest pain, and has had no events on tele. Objective Active Medications: Acetaminophen (Tylenol Tab*) 650 mg PO Q6H PRN PRN Reason: MILD PAIN or TEMP > 100.4 Aspirin (Aspirin Ec Tab*) 81 mg PO DAILY [facility] Last Admin: 11/19/18 07:34 Dose: 81 mg Atorvastatin Calcium (Lipitor*) 10 mg PO 1700 DARREL Clopidogrel Bisulfate (Plavix Tab*) 75 mg PO DAILY [facility] Last Admin: 11/19/18 07:34 Dose: 75 mg Cyanocobalamin (Vitamin B12 Tab*) 1,000 mcg PO DAILY [facility] Last Admin: 11/19/18 12:46 Dose: 1,000 mcg Diltiazem HCl (Cardizem Cd Cap*) 120 mg PO QAM [facility] Last Admin: 11/19/18 09:21 Dose: Not Given Eplerenone (Inspra (Nf)) 25 mg PO DAILY [facility]; Protocol Last Admin: 11/19/18 09:21 Dose: Not Given Fentanyl Citrate (Fentanyl*) 25 mcg IV Q2H PRN PRN Reason: PAIN - MODERATE Finasteride (Proscar Tab*) 5 mg PO DAILY [facility] Last Admin: 11/19/18 12:46 Dose: 5 mg Heparin Sodium (Porcine) (Heparin Vial(*)) 0 - 4,000 units IV .PER PROTOCOL [facility] Heparin Sodium/Dextrose (Heparin Drip 25,000 Units(*)) 25,000 units in 500 mls @ 0 mls/hr IV PER RATE [facility]; Protocol Last Admin: 11/18/18 16:37 Dose: 20 mls/hr Sodium Chloride (Ns 0.9% 1000 Ml) 1,000 mls @ 100 mls/hr IV .per rate [facility] Stop: 11/19/18 17:51 Last Admin: 11/19/18 10:27 Dose: 100 mls/hr Isosorbide Mononitrate (Imdur Er Tab*) 30 mg PO DAILY [facility] Last Admin: 11/19/18 12:45 Dose: 30 mg Nitroglycerin (Nitroglycerin Tab 0.4 Mg*) 0.4 mg SL Q5M PRN PRN Reason: ANGINA Last Admin: 11/18/18 11:23 Dose: 0.4 mg Nitroglycerin (Nitroglycerin Tab 0.4 Mg*) 0.4 mg SL Q5M PRN PRN Reason: ANGINA Vital Signs - 8 hr 11/19/18 11/19/18 11/19/18 10:14 10:15 10:17 Temperature 98.2 F Pulse Rate 49 53 Respiratory 13 18 Rate Blood Pressure 132/69 144/66 (mmHg) O2 Sat by Pulse 100 100 Oximetry 11/19/18 11/19/18 11/19/18 10:30 10:46 11:00 Temperature Pulse Rate 46 46 53 Respiratory 17 19 14 Rate Blood Pressure 145/72 151/77 (mmHg) O2 Sat by Pulse 100 100 100 Oximetry 11/19/18 11/19/18 11/19/18 11:01 11:15 11:30 Temperature Pulse Rate 49 50 47 Respiratory 15 17 14 Rate Blood Pressure 145/79 140/83 146/98 (mmHg) O2 Sat by Pulse 100 100 100 Oximetry 11/19/18 11/19/18 11/19/18 11:45 12:00 12:18 Temperature 97.7 F Pulse Rate 49 48 Respiratory 16 20 Rate Blood Pressure 144/72 138/85 (mmHg) O2 Sat by Pulse 100 98 Oximetry 11/19/18 11/19/18 11/19/18 12:31 13:00 13:01 Temperature Pulse Rate 53 50 Respiratory 20 16 16 Rate Blood Pressure 159/71 147/75 (mmHg) O2 Sat by Pulse 99 88 Oximetry 11/19/18 11/19/18 11/19/18 13:30 14:00 14:01 Temperature Pulse Rate 68 55 Respiratory 17 20 16 Rate Blood Pressure 127/82 130/72 (mmHg) O2 Sat by Pulse 97 96 Oximetry 11/19/18 11/19/18 11/19/18 14:30 15:00 16:00 Temperature Pulse Rate 53 45 59 Respiratory 20 17 21 Rate Blood Pressure 115/68 126/59 (mmHg) O2 Sat by Pulse 98 98 94 Oximetry 11/19/18 11/19/18 16:01 17:00 Temperature Pulse Rate 59 60 Respiratory 18 17 Rate Blood Pressure 106/83 116/59 (mmHg) O2 Sat by Pulse 94 94 Oximetry Oxygen Devices in Use Now: None Appearance: alert, well appearing man Eyes: No Scleral Icterus Ears/Nose/Mouth/Throat: NL Teeth, Lips, Gums Neck: NL Appearance and Movements; NL JVP Respiratory: Symmetrical Chest Expansion and Respiratory Effort, Clear to Auscultation Cardiovascular: RRR Abdominal: NL Sounds; No Tenderness; No Distention Lymphatic: No Cervical Adenopathy Extremities: No Edema, - - R groin without hematoma Skin: No Rash or Ulcers Neurological: Alert and Oriented x 3 Result Diagrams: 11/19/18 05:04 11/19/18 05:04 Microbiology and Other Data: Microbiology 11/19/18 10:27 Nasal Screen MRSA (PCR) - Final Nasal Mrsa Not Detected Assess/Plan/Problems-Billing Assessment: 87M with CAD s/p PCI, HTN, obesity, , BPH, who presents with recurrent chest tightness, found with NSTEMI. - Patient Problems (1) NSTEMI (non-ST elevated myocardial infarction) Current Visit: Yes Status: Acute Code(s): I21.4 - NON-ST ELEVATION (NSTEMI) MYOCARDIAL INFARCTION SNOMED Code(s): 98498924 Comment: s/p LHC today, with PCI to RCA and LAD DC heparin now continue dual antiplatelet he has not tolerated statins in the past but we will re-try with rosuvastatin at low dose no bb due to bradycardia (2) Aortic stenosis Current Visit: No Status: Acute Code(s): I35.0 - NONRHEUMATIC AORTIC (VALVE ) STENOSIS SNOMED Code(s): 90654814 Comment: noted to be insignificant during LHC (3) HTN (hypertension) Current Visit: Yes Status: Acute Code(s): I10 - ESSENTIAL (PRIMARY) HYPERTENSION SNOMED Code(s): 62766886 Comment: continue epleronone (4) BPH (benign prostatic hyperplasia) Current Visit: Yes Status: Acute Code(s): N40.0 - BENIGN PROSTATIC HYPERPLASIA WITHOUT LOWER URINRY TRACT SYMP SNOMED Code(s): 989719926 Comment: cont home finasteride Status and Disposition: monitor in ICU overnight, plan for home tomorrow with cardiology follow up
[2018-11-19] MEDS ORDERED: CMCS:Rosuvastatin (NF) 20 MG TAB PO SCH (21:00)
[2018-11-20 04:49] LABS: Albumin 3.9 g/dL (3.2-5.2); Albumin/Globulin Ratio 1.8 (1-3); BUN/Creatinine Ratio 23.3 (8-20); EGFR African American 102.3 (>60); EGFR Non-African American 84.5 (>60); Globulin 2.2 g/dL (2-4); Potassium 4.1 mmol/L (3.5-5.0); Total Bilirubin 0.7 mg/dL (0.2-1.0); Total Protein 6.1 g/dL (6.4-8.9)
[2018-11-20 05:21] LABS: ABS Eosinophils 0.1 10^3/ul (0-0.6); ABS Lymphocytes 1.3 10^3/ul (1.0-4.8); ABS Monocytes 0.8 10^3/ul (0-0.8); Eosinophil % 1.3 %; Hematocrit 39 % (42-52); Hemoglobin 13.7 g/dL (14.0-18.0); Lymphocyte % 15.9 %; Mean Corpuscular HGB Conc 35 g/dL (31-36); Mean Corpuscular Hemoglobin 33 pg (27-31); Mean Corpuscular Volume 93 fL (80-94); Mean Platelet Volume 8.5 fL (7.4-10.4); Platelet Count 172 10^3/uL (150-450); Red Blood Count 4.19 10^6 /uL (4.18-5.48); Red Cell Distribution Width 13 % (10-15); White Blood Count 8.2 10^3/uL (3.5-10.8)
[2018-11-20] MEDS: Cyanocobalamin TAB* 500 MCG PO SCH (07:57)
[2018-11-20] MEDS: Aspirin EC TAB* 81 MG TAB.EC PO SCH (07:57)
[2018-11-20] MEDS: Isosorbide Mononitrate ER TAB* 30 MG PO SCH (07:57)
[2018-11-20] MEDS: Finasteride TAB* 5 MG PO SCH (07:57)
[2018-11-20] MEDS: Diltiazem CD CAP* 120 MG PO SCH (07:57)
[2018-11-20] MEDS: Clopidogrel TAB* 75 MG PO SCH (07:57)
[2018-11-20] MEDS: CMC: Epleronone (NF) 25 MG TAB PO SCH (07:58)
[2018-11-20] MEDS ORDERED: Enoxaparin(*) 40 MG/0.4 ML SYR SUBCUT SCH (08:00)
[2018-11-20 08:23] VITALS: BP 135/82
--- NOTE | 2018-11-20 08:55 | PN ---
Hospitalist Progress Note Date of Service: 11/20/18 Subjective- Pt feels very well and says hes ready to go home. No overnight events Objective- Appearance- well appearing man, alert and interactive EENT- clear, oropharynx, mucous membranes moist Neck-supple, midline Respiratory- Bilateral lungs clear to auscultation Cardiovascular- no murmur heard Abdominal- soft, no tenderness or distension extremities- no edema, clubbing, cyanosis neuro- alert, oriented x3 hgb-13.7 Hct- 39 MCH-33 BUN/creatinine-23.3 glucose-104 Vitals-(0800) Heart rate-64 Resp rate- 9 O2 saturation- 92 Blood pressure- 135/82 EKG-sinus bradycardia.. heart rate=54, sinus,left axis deviation no LVH, no RVH. normal qrs. pr interval>200 , QTc is normal Assessment/Plan- 87 yr old male s/p PCI, HTN, obesity, , BPH, who presented with recurrent chest tightness and found to have a NSTEMI. Pt went to labeling associate today and received 2 stents(details pending) 1.)NSTEMI -Pt went to labeling associate and had 2 stents placed- RCA and LAD -Atorvastatin calcium 10mg PO 1700 DARREL Rosuvastatin 20mg PO bedtime -Clopidogrel 75mg PO daily -Aspirin 81mg PO daily -Isosorbide mononitrate 30mg PO daily -nitroglycerin .4mg SL Q5M PRN 2.)HTN -epleronone 25mg PO daily 3.) BPH - Finasteride 5mg PO daily 4.) aortic stenosis -noted to be insignificant 4.)DVT prophylaxis -enoxaparin 40mg subcut. Q24hrs
--- NOTE | 2018-11-20 11:58 | DS ---
CC: Dr. Rosas; Dr. Bernard * DATE OF ADMISSION: 11/17/2018. DATE OF DISCHARGE: 11/20/2018. PRINCIPAL DISCHARGE DIAGNOSES: 1. Acute coronary syndrome, NSTEMI, status post percutaneous intervention to the RCA and LAD with drug-eluting stents. 2. Severe aortic stenosis. SECONDARY DIAGNOSES: 1. BPH. 2. Hypertension. 3. Hyperlipidemia. MEDICATIONS AT DISCHARGE: 1. Aspirin 81 mg daily. 2. Proscar 5 mg daily. 3. Vitamin B12 1,000 mcg daily. 4. Saw [place] Fruit one tab daily. 5. Indomethacin 25 mg t.i.d. prn. 6. Eplerenone 25 mg daily. 7. Amlodipine 5 mg daily. 8. Plavix 75 mg daily. 9. Simvastatin 20 mg at bedtime, this is an increase in his prior home of Simvastatin. MEDICATIONS DISCONTINUED DURING THIS ADMISSION: Diltiazem 120 mg daily. PHYSICAL EXAMINATION AT DISCHARGE: General: Alert, well-appearing man who appears younger than his stated age. Vital Signs: Temperature 98.9, heart rate 64, respiratory rate 22, pulse ox 92 percent on room air, blood pressure 135/82. HEENT: Pupils equal, round and reactive to light. Oral mucosa is moist. Neck: No JVP or adenopathy. Chest: He is in a regular rate and rhythm with a soft systolic murmur at the right upper sternal border without radiation. PMI is nondisplaced. Lungs: Clear bilaterally. Abdomen: Soft, nontender, and nondistended. His right groin cath site is clean and without hematoma and with a faint ecchymosis inferiorly. Distal pulses are 2+ bilaterally. Extremities: No edema, rashes, or ulcers. HOSPITAL COURSE BY PROBLEM: 1. Acute coronary syndrome with an NSTEMI: Mr. Gordon had been following closely with Cardiology when he had chest pain on the day of admission and he went to the emergency department. He was found to have troponin elevation at 0.32. His troponin peaked at 0.39. He was started on a Heparin drip at the time of admission and Cardiology was consulted. Dr. Brewer evaluated the patient and loaded him with Plavix and discussed the case with Interventional Cardiology. He was continued on a Heparin drip and had no return of his chest pain. His EKG was significant only for inferior Q-waves. He was taken to the labor contractor on 11/19/2018 and drug-eluting stents were placed to the RCA and the LAD. He was transferred to the ICU where he was monitored overnight and had no post cath complications, including no events on telemetry and no further chest pain. A beta kevin was deferred given his bradycardia and he was continued on aspirin and Plavix only. A beta kevin can be reconsidered as an outpatient ; however, he was not on a beta kevin at the time of admission with his history or coronary artery disease, so I suspect his bradycardia has limited the use of beta blockers in the past as well. His Simvastatin dose was doubled to 20 mg daily. This can also be uptitrated as an outpatient; however, this was done cautiously as he does have a history of myalgias to Atorvastatin. He has a follow-up with Dr. Reynolds on November 27 and he has been provided with this appointment date. He was given information on care of the groin site as well. 2. Hypertension: Dr. Chin discontinued the Diltiazem and recommended Amlodipine instead. He needs close follow-up with Cardiology for his blood pressure. 3. Hyperlipidemia: His Simvastatin was increased as above. DISPOSITION: Mr. Gordon is being discharged to home in the care of his . He will follow-up with his primary care physician and his director patient financial services within two weeks. CONDITION ON DISCHARGE: Stable. [id number]/CPS #: [id number] MTDD
--- NOTE | 2018-11-20 15:27 | CATH ---
CC: Dr. Bharath Rosas; Dr. Jarrod Bernard, III * CARDIAC CATHETERIZATION REPORT: DATE OF PROCEDURE: 11/19/18 - ROOM #ICU-08 INDICATIONS FOR PROCEDURE: Asked by Dr. Neil Brewer to perform cardiac catheterization to assess the patient for the presence of significant progression of coronary artery disease with presentation of acute coronary syndrome with progressive angina pectoris and abnormal troponin levels. Of note , the patient had a history of aortic stenosis that was being evaluated. Dr. Brewer did review the studies and felt the aortic stenosis was not critical and as such wanted to assess for the presence of coronary artery disease. PROCEDURE: Coronary arteriography, left heart catheterization, balloon angioplasty, and placement of a 2.75 x 12 mm long Synergy drug-eluting stent in the mid LAD and primary stenting of the distal right coronary artery with a 3.0 x 13 mm long Orsiro drug-eluting stent. CONSENT: The patient was interviewed and examined on the floor of the hospital where the risks and benefits were explained. He understood them and wished to proceed. APPROACH UTILIZED: Given the fact that the patient in reading the reports of prior interventions, there was difficulty getting down the right coronary artery and requiring multiple wires and support devices, the decision was made to use the femoral approach as the access point. EQUIPMENT UTILIZED: 1. Right femoral artery sheath was initially a 5-Lao 11 cm Veronica sheath; later on, this was upgraded to a 6.5-Lao Merit Prelude sheath for the intervention. 2. Diagnostic coronary catheters included a 5-Lao 4.5 curved left coronary catheter and a 5-Lao 4 curved right coronary catheter. 3. Left heart catheterization catheter - was a 5-Lao 145 degree angled pigtail catheter. 4. Interventional guide catheters utilized - VL4 6-Lao for the left anterior descending artery lesion, an AR2 6-Lao for the right distal lesion. 5. Interventional wires utilized, a All Star 190 cm length and a BMW 190 cm length. 6. Pre-stent deployment balloon angioplasty catheter for the LAD - 2.0 x 12 mm long NC Emerge balloon. 7. Stents utilized a 2.75 x 12 mm long Synergy drug-eluting stent in the LAD and a 3.0 x 13 mm Orsiro drug-eluting stent in the distal right coronary artery. 8. The closure device utilized was a 6/7-Lao Mynx closure device. 9. The fractional flow reserve analysis wire utilized for both the LAD and an attempt at the right coronary artery - was a [employer] PressureWire X. PRECARDIAC CATHETERIZATION LABORATORY RESULTS: BUN and creatinine were 24 and 1.0. Hemoglobin and hematocrit were 14 and 39 with a platelet count of 218,000. Sodium 139, potassium 4.2, chloride 108, bicarb 25. Troponin pre-study was 0.37. MEDICATIONS GIVEN DURING THE PROCEDURE: Included IC adenosine boluses for the FFR as well as IC nitroglycerin for dilatation prior to the FFR, 1% lidocaine, Angiomax bolus and Angiomax drip and fentanyl for discomfort. DESCRIPTION OF PROCEDURE: The patient was brought to the cardiovascular laboratory where a formal time-out was performed. He was prepped and draped in the sterile fashion. The right femoral artery was cannulated and sheath was placed and diagnostic coronary arteriography was performed. Following this, left heart catheterization was performed. At that point, the decision was made to assess the left anterior descending artery, and as such, the guide catheter was utilized and ACT was checked, found to be subtherapeutic, and an Angiomax bolus and Angiomax drip was started. The patient received intracoronary nitroglycerin and the PressureWire was advanced and it was calibrated just outside the catheter in the left main and then passed beyond the mid LAD lesion. The patient was given 96 mcg of adenosine and the FFR value was 0.74 found to be significant. As such, the decision for intervention was made. An All Star wire was placed down the left anterior descending artery and a BMW was placed in a diagonal branch. Balloon angioplasty was performed followed by stent deployment, after which the wires were reversed and balloon angioplasty post stent deployment was carried out. The artery was then assessed for result. Following this, attention was then turned to the right coronary artery. Guiding views were obtained and the PressureWire was advanced across the lesion. Of note with adenosine administration, the patient had a complete heart block, making it impossible to assess accurate for the FFR value as we could not get beats during the initial time, during which he was transiently asystolic. In reassessing the views taken in the initial injections, the artery lesion clearly appeared to be significant in nature, and as such, the decision was made to proceed with intervention. This artery was primary stented with the Totally Interactive Weatheriro drug-eluting stent. Following this, the artery was assessed for result. At the end of the case, catheters and sheaths were removed and hemostasis was obtained with the Mynx closure device. The total contrast used was 200 cc of Omnipaque dye. The radiation exposure included 23.2 minutes of fluoro time. The air kerma radiation was 3225 mGy. The DAP radiation was 19, 639 microgray per meter squared. RESULTS: HEMODYNAMIC DATA: Left heart catheterization - central aortic pressure was recorded at 136/60 with a mean of 92, left ventricular pressure of 144 over left ventricular end- diastolic pressure of 22. CORONARY ARTERIOGRAPHY: A. Left coronary artery. 1. Left main - there was minimal tapering of the left main with calcium seen, the degree of luminal reduction noted to be approximately 15% to 20%. 2. Left anterior descending artery - proximal segment of the left anterior descending had mild tapering with calcium in its mid portion, narrowing of approximately 30%. In the mid portion just at the takeoff of a mid diagonal branch, there was an eccentric hazy 70% to 75% lesion seen. The first diagonal branch which took off just prior to this lesion had diffuse disease in its proximal segment with narrowing as much as 60%. The distal left anterior descending artery had a 40% narrowing noted in a small caliber segment. The first and second diagonal branches were thread like vessels in general. 3. Circumflex artery - a nondominant vessel supplying a very high, thin first obtuse marginal branch, short in nature. After this, there was a mid obtuse marginal branch that may have had a prior stent in it, although it is not well visualized. There is mild to moderate narrowing of 40% noted. The continuation of the circumflex supplied a bifurcating low lying obtuse marginal branch. There was mild ostial narrowing of that of 25% to 30%. B. Right coronary artery - a dominant vessel supplying the PDA and 3 posterior left ventricular branches. The prior stented area in the proximal LAD had in-stent restenosis that appeared to be as much as 45%. The mid segment stents had no evidence of in-stent restenosis. As the artery turned on to the inferior surface of the heart and at the takeoff of a small caliber acute marginal branch which paralleled the PDA, there was a significant lesion of 75% to 80%. There was no significant lesion seen past this point. FRACTIONAL FLOW RESERVE ANALYSIS AND INTERVENTION IN THE MID LEFT ANTERIOR DESCENDING ARTERY: Fractional flow reserve analysis was found to show a hemodynamically significant lesion in the mid LAD with an FFR of 0.71. Successful intervention with balloon angioplasty and stenting with a 2.75 x 12 mm long Synergy drug- eluting stent postdilated to 2.8 mm with RANDY-3 flow and no dissection seen with residual narrowing of less than 5%. Of note, just distal to the stent placement was an area of 15% to 20% narrowing noted in the otoe-[place] vessel itself. INTERVENTION INTO DISTAL RIGHT CORONARY ARTERY: Successful reduction of 75% to 80% lesion with primary stenting utilizing a 3.0 x 13 mm long Orsiro drug-eluting stent postdilated to 3.1 to 3.2 mm with 0% residual stenosis, RANDY-3 flow and no dissection seen. Of note, there was brisk RANDY-3 flow in the acute marginal branch which paralleled the PDA. OVERALL ASSESSMENT: Successful two vessel intervention involving the mid left anterior descending and the distal right coronary artery as described above. Of note, the left heart catheterization does not suggest the presence of critical aortic stenosis. The patient should be maintained on dual-antiplatelet therapy, and interestingly back in 2012, the cath report at that time suggested continuous dual-antiplatelet therapy with no stopping given the fact that multiple stents have been placed. At this point in time, I would go for at least a minimum of a year's time. The patient will be following up with Dr. Bharath Rosas as his primary rn hospice after a wound check by Dr. Reynolds next week. One other crucial problem is that he is currently not on any type of cholesterol lowering agents because of reported intolerance to statin therapy. The hospitalist will be starting him on very low dose statin therapy and Zetia therapy, but I believe he needs to pursue the injectable agents under Dr. Rosas 's guidance when he sees him back in followup. [id number]/[facility] #: [id number] [facility]
== END 2018-11-20 10:00 | disposition home or self-care (01) | DRG 247 ==
LOC: ED 11:20 → MEDTELE 13:19 → OBSVTOIN 11-18 11:53 → ICU 11-19 09:51
PROVIDERS: ADMIT Internal Medicine; ATTEND Internal Medicine
PROC: 5A09357 Assistance with Respiratory Ventilation, Less than 24 Consecutive Hours, Continuous Positive Airway Pressure (ICD-10-PCS; 2018-11-18)
PROC: B2111ZZ Fluoroscopy of Multiple Coronary Arteries using Low Osmolar Contrast (ICD-10-PCS; 2018-11-19)
PROC: 4A023N7 Measurement of Cardiac Sampling and Pressure, Left Heart, Percutaneous Approach (ICD-10-PCS; 2018-11-19)
PROC: 4A033BC Measurement of Arterial Pressure, Coronary, Percutaneous Approach (ICD-10-PCS; 2018-11-19)
PROC: 027135Z Dilation of Coronary Artery, Two Arteries with Two Drug-eluting Intraluminal Devices, Percutaneous Approach (ICD-10-PCS; principal; 2018-11-19 08:00)
DX: I21.4 Non-ST elevation (NSTEMI) myocardial infarction (principal); I35.0 Nonrheumatic aortic (valve) stenosis; J30.2 Other seasonal allergic rhinitis; E78.5 Hyperlipidemia, unspecified; E66.9 Obesity, unspecified; I10 Essential (primary) hypertension; I25.119 Atherosclerotic heart disease of native coronary artery with unspecified angina pectoris; N40.0 Benign prostatic hyperplasia without lower urinary tract symptoms; E78.00 Pure hypercholesterolemia, unspecified; Z88.8 Allergy status to other drugs, medicaments and biological substances; Z95.5 Presence of coronary angioplasty implant and graft; Z82.49 Family history of ischemic heart disease and other diseases of the circulatory system; Z72.0 Tobacco use; Z98.49 Cataract extraction status, unspecified eye; Z68.31 Body mass index [BMI] 31.0-31.9, adult; Z79.82 Long term (current) use of aspirin; Z79.02 Long term (current) use of antithrombotics/antiplatelets
CPT/HCPCS: 36415; 71045; 80048; 80053; 81003; 82550; 82553; 83735; 83880; 84443; 84484; 85025; 85347; 85610; 85730; 87641; 93005; 93312; 93325; 93458; 96372; 99156; 99157; 99284; A9270-GY; C1725; C1769; C1874; C1876; C1887; C9600-LD; C9601-RC; G0378; J0153; J0583; J1644; J1650; J2250; J2310; J3010

== ENCOUNTER 2021-11-30 11:55 | Inpatient (IN) ==
[2021-11-30] MEDS ORDERED: Albuterol HFA INHALER 8 gm MDI INH ONE (12:55)
[2021-11-30 12:58] LABS: ABS Basophils 0.1 10^3/ul (0-0.2); ABS Eosinophils 0.1 10^3/ul (0-0.6); ABS Lymphocytes 1.1 10^3/ul (1.0-4.8); ABS Monocytes 1.3 10^3/ul (0-0.8); ABS Neutrophils 10.9 10^3/ul (1.5-7.7); Eosinophil % 0.9 %; Hematocrit 41 % (42-52); Hemoglobin 13.5 g/dL (14.0-18.0); Lymphocyte % 8.1 %; Mean Corpuscular HGB Conc 33 g/dL (31-36); Mean Corpuscular Hemoglobin 31 pg (27-31); Mean Corpuscular Volume 93 fL (80-94); Nucleated Red Blood Cells % 0.1; Platelet Count 265 10^3/uL (150-450); Red Blood Count 4.37 10^6 /uL (4.18-5.48); Red Cell Distribution Width 14 % (10-15); White Blood Count 13.6 10^3/uL (3.5-10.8)
[2021-11-30 13:07] LABS: INR 1.4 (0.89-1.11)
[2021-11-30] MEDS ORDERED: methylPREDNISolone SOD SUCC 125 mg 2 ML VIAL IV ONE (13:40)
[2021-11-30 13:55] LABS: Albumin 3.3 g/dL (3.2-5.2); Albumin/Globulin Ratio 1.4 (1-3); C Reactive Protein 137.07 mg/L (<8.01); Calcium 7.9 mg/dL (8.6-10.3); Globulin 2.3 g/dL (2-4); Potassium 3.7 mmol/L (3.5-5.0); Total Bilirubin 0.7 mg/dL (0.2-1.0); Total Protein 5.6 g/dL (6.4-8.9); eGFR CKD-EPI 87.2 (>60)
[2021-11-30 14:32] LABS: High Sensitivity Troponin 1 Hr 15 pg/mL (<20)
[2021-11-30] MEDS ORDERED: Azithromycin 500 mg/250 ml NS 500 MG/250 ML BAG IVPB ONE (15:38)
[2021-11-30] MEDS ORDERED: cefTRIAXone 1 gm/50 mL D5W 1 GM/50 ML BAG IV ONE (15:38)
[2021-11-30] MEDS ORDERED: Iohexol 350 (CONTRAST) 500 ML MDV IV ONE (15:44)
[2021-12-01] LABS: Erythrocyte Sed Rate 100 mm/Hr (0-19)
[2021-12-01 00:22] LABS: Uric Acid 4.2 mg/dL (4.4-7.6)
[2021-12-01 07:02] LABS: Albumin 3.5 g/dL (3.2-5.2); Albumin/Globulin Ratio 1.3 (1-3); Globulin 2.6 g/dL (2-4); Potassium 4.5 mmol/L (3.5-5.0); Total Bilirubin 0.6 mg/dL (0.2-1.0); Total Protein 6.1 g/dL (6.4-8.9); eGFR CKD-EPI 82.7 (>60)
[2021-12-01 07:37] LABS: ABS Lymphocytes 0.8 10^3/ul (1.0-4.8); ABS Monocytes 0.5 10^3/ul (0-0.8); ABS Neutrophils 11.4 10^3/ul (1.5-7.7); Hematocrit 40 % (42-52); Hemoglobin 13.4 g/dL (14.0-18.0); Lymphocyte % 6.5 %; Mean Corpuscular HGB Conc 34 g/dL (31-36); Mean Corpuscular Hemoglobin 32 pg (27-31); Mean Corpuscular Volume 94 fL (80-94); Platelet Count 290 10^3/uL (150-450); Red Blood Count 4.24 10^6 /uL (4.18-5.48); Red Cell Distribution Width 13 % (10-15); White Blood Count 12.7 10^3/uL (3.5-10.8)
[2021-12-01] MEDS: CMCS: Epleronone 25 mg TAB (NF) PO SCH (09:24)
[2021-12-01] MEDS: Aspirin EC 81 mg TAB.EC (enteric coated) PO SCH (09:26)
[2021-12-01] MEDS: Azithromycin 500 mg/250 ml NS 500 MG/250 ML BAG IVPB SCH (15:17)
[2021-12-02 06:11] LABS: ABS Basophils 0.1 10^3/ul (0-0.2); ABS Lymphocytes 1.5 10^3/ul (1.0-4.8); ABS Monocytes 1.2 10^3/ul (0-0.8); ABS Neutrophils 15.4 10^3/ul (1.5-7.7); Hematocrit 39 % (42-52); Hemoglobin 13.1 g/dL (14.0-18.0); Lymphocyte % 8.2 %; Mean Corpuscular HGB Conc 34 g/dL (31-36); Mean Corpuscular Hemoglobin 32 pg (27-31); Mean Corpuscular Volume 94 fL (80-94); Mean Platelet Volume 8.4 fL (7.4-10.4); Platelet Count 282 10^3/uL (150-450); Red Blood Count 4.15 10^6 /uL (4.18-5.48); Red Cell Distribution Width 14 % (10-15); White Blood Count 18.2 10^3/uL (3.5-10.8)
[2021-12-02 06:13] LABS: INR 1.38 (0.89-1.11)
[2021-12-02 06:35] LABS: C Reactive Protein 62.13 mg/L (<8.01); Calcium 8.8 mg/dL (8.6-10.3); Potassium 4.5 mmol/L (3.5-5.0); eGFR CKD-EPI 83.6 (>60)
[2021-12-02] MEDS: CMCS: Epleronone 25 mg TAB (NF) PO SCH (09:52)
[2021-12-02] MEDS: Aspirin EC 81 mg TAB.EC (enteric coated) PO SCH (09:58)
[2021-12-02] MEDS: Azithromycin 500 mg/250 ml NS 500 MG/250 ML BAG IVPB SCH (16:35)
[2021-12-03 08:17] VITALS: BP 148/78
[2021-12-03 09:08] LABS: ABS Lymphocytes 1.9 10^3/ul (1.0-4.8); ABS Monocytes 0.9 10^3/ul (0-0.8); ABS Neutrophils 9.5 10^3/ul (1.5-7.7); Eosinophil % 0.1 %; Hematocrit 40 % (42-52); Hemoglobin 13.4 g/dL (14.0-18.0); Lymphocyte % 15.3 %; Mean Corpuscular HGB Conc 33 g/dL (31-36); Mean Corpuscular Hemoglobin 31 pg (27-31); Mean Corpuscular Volume 94 fL (80-94); Mean Platelet Volume 8.1 fL (7.4-10.4); Nucleated Red Blood Cells % 0.1; Platelet Count 281 10^3/uL (150-450); Red Blood Count 4.29 10^6 /uL (4.18-5.48); Red Cell Distribution Width 14 % (10-15); White Blood Count 12.4 10^3/uL (3.5-10.8)
[2021-12-03] MEDS: Aspirin EC 81 mg TAB.EC (enteric coated) PO SCH (09:25)
[2021-12-03] MEDS: CMCS: Epleronone 25 mg TAB (NF) PO SCH (09:27)
[2021-12-03 09:43] LABS: Calcium 8.6 mg/dL (8.6-10.3); Potassium 3.9 mmol/L (3.5-5.0)
[2021-12-03] MEDS ORDERED: cefTRIAXone 1 gm/50 mL D5W 1 GM/50 ML BAG IV SCH (10:00)
[2021-12-03 10:40] LABS: C Reactive Protein 25.15 mg/L (<8.01)
[2021-12-04 18:02] LABS: Bordetella parapertussis PCR Negative; Bordetella pertussis PCR Negative
== END 2021-12-03 16:25 | disposition home or self-care (01) | DRG 195 ==
LOC: ED 11:55 → SUATTDRO 22:19 → EDHOLD 22:19 → MEDTELE 12-01 03:54
PROVIDERS: ADMIT Internal Medicine; ATTEND Internal Medicine